=== PATIENT | male | born 1975 | race Caucasian/White ===

== ENCOUNTER 2020-02-27 07:07 | Outpatient (REF) | payer OTHER, SELFPAY | END 2020-02-27 07:08 | disposition home or self-care (01) | LOC: HO.LAB 07:07 | PROVIDERS: PCP Nurse Practitioner Family; Visit Provider Internal Medicine | DX: Z20.828 Contact with and (suspected) exposure to other viral communicable diseases (principal) | CPT/HCPCS: 87635 ==

== ENCOUNTER 2020-04-21 11:20 | Outpatient (REF) | payer OTHER, SELFPAY | END 2020-04-21 11:21 | disposition home or self-care (01) | LOC: HO.LAB 11:20 | PROVIDERS: Visit Provider Internal Medicine | DX: Z20.828 Contact with and (suspected) exposure to other viral communicable diseases (principal) | CPT/HCPCS: C9803; U0003 ==

== ENCOUNTER 2022-02-16 10:27 | Emergency (ER) | payer OTHER, SELFPAY ==
[2022-02-16 10:50] VITALS: BP 140/97; PULSE 76; RESP 18; TEMP 36.7; O2SAT 99; BMI 26.6
--- NOTE | 2022-02-16 12:05 | ED_ITS ---
HPI - Back Pain/Injury General Chief Complaint: Back Pain/Injury Stated Complaint: Sever leg pain R leg for 3 weeks Time Seen by Provider: 02/16/22 11:39 Source: patient Mode of arrival: ambulatory History of Present Illness HPI Narrative: 46-year-old male with a past medical history of sciatica presenting to the ED complaining right-sided low back pain radiating down RLE x3 weeks. 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 States called Orthopedics however cannot get in for 3-4 more weeks. Denies direct injury, trauma, fall, weakness, urinary incontinence/retention, fever MD elicited complaint: back pain and back injury Pertinent past history: prior back pain Onset (ago): week(s) Related Data Previous Rx's Medication Instructions Recorded acetaminophen 500 mg tablet 500 mg PO Q6H PRN fever or pain 02/16/22 (Tylenol Extra Strength) #14 tabs cyclobenzaprine 10 mg tablet 10 mg PO TID PRN muscle spasm #12 02/16/22 tabs ketorolac 10 mg tablet 10 mg PO TID PRN pain 5 days #15 02/16/22 tabs lidocaine 5 % topical patch 1 patch topical DAILY PRN pain #30 02/16/22 (Lidoderm) ea Allergies Allergy/AdvReac Type Severity Reaction Status Date / Time Penicillins [PENICILLINS] Allergy Intermediate HIVES Unverified 01/31/20 14:56 penicillin V Allergy Unknown unsure Unverified 03/01/17 00:00 ?hives, hives Review of Systems Review of Systems: Constitutional: No Fever, No Chills ENT/Mouth: No Ear Pain, No Nasal Congestion, No Sinus Pain, No Hoarseness, No sore throat, No Rhinorrhea, No Swallowing Difficulty Cardiovascular: No Chest Pain, No SOB Respiratory: No Cough, No Sputum, No Wheezing Gastrointestinal: No Nausea, No Vomiting, No Diarrhea, No Constipation, No Abdominal pain Genitourinary: No Dysuria, No Urinary Frequency, No Hematuria, No Urinary Incontinence/retention, No Urgency, No Flank Pain Musculoskeletal: + joint pain, No Myalgias, No Joint Swelling Skin: No Skin Lesions, No rash Neuro: No Weakness, No Numbness, + Paresthesias Yes all other systems are reviewed and are negative Constitutional: Constitutional: Reports as per HPI Neurologic: Denies Sensory deficit (Neuro) [facility] Past Medical History Attestation statement: The following information was validated with the patient. Social History Social History Advance Directives: No Advance Directives Information Provided: No Physical Exam Vital Signs: Vital Signs: Last Vital Signs Temp 98.1 F 02/16/22 10:50 Pulse 76 02/16/22 10:50 Resp 18 02/16/22 10:50 BP 140/97 H 02/16/22 10:50 Pulse Ox 99 02/16/22 10:50 BMI result Body Mass Index 26.6 Const: General: cooperative, healthy appearing and no acute distress Orientation/consciousness: patient oriented x3 Limitations: no limitations HEENT: Head: Yes normal to inspection and Yes atraumatic Ears: hearing grossly normal bilaterally General nose exam: Normal external nose present Face and sinus: Yes normal facial exam Eyes: General: appearance normal, both eyes and all related structures EOM: EOMs intact bilaterally Neck: Other: No midline cervical spinous tenderness Neck: Yes normal visual inspection and Yes no meningeal signs Resp: Effort & Inspection: normal respiratory effort and no respiratory distress Cardio: Rate: regular rate Heart sounds: S1 normal heart sound present and S2 normal heart sound present GI: Inspection: Yes normal to inspection Palpation (GI): Soft to palpation, nontender, no guarding and not rigid : General: Yes no CVA tenderness Back/Spine/Pelvis: Other: No midline thoracic/lumbar spinous tenderness/step-off or deformity. + right- sided lower lumbar MSK tenderness to palpation Back: no CVA tenderness Skin: Rashes: no rashes Wounds: no wounds Neuro: Other: Strength intact throughout. No saddle anesthesia. Sensation intact to light touch. Neurovascular intact distally General: patient oriented x3, gait normal , tone normal, moves all extremities, no meningeal signs and no focal motor deficits Gait exam (Neuro): Normal gait present Motor exam (neuro): 5/5 motor strength present throughout and Abnormal motor strength present Sensory Exam: No Sensory deficit (Neuro) Extrem: General: Yes normal to inspection MDM - Back Pain/Injury MDM Narrative Medical decision making narrative: 46-year-old male with a past medical history of sciatica presenting to the ED complaining right-sided low back pain radiating down RLE x3 weeks. On exam vital signs stable, NAD, nontoxic appearing, no midline spinous tenderness or or red flag symptoms. Pain reproducible to right lower back, no saddle anesthesia. Concern for MSK pain/sciatica vs herniated disc. Low concern for cord compression, cauda equina, or epidural abscess. Low suspicion for renal stone Plan: Pain management, orthopedic follow-up Differential Diagnosis Differential diagnosis: Likely lumbar radiculopathy, sciatica and strain of lumbar region Medical Records Attestation: I reviewed the patient's medical records. Lab Data Attestation: I reviewed the patient's lab results. Discharge Plan Discharge Clinical Impression: Lumbar radiculopathy Patient Disposition: Home, Self-Care Instructions: Lumbar Radiculopathy (ED) Additional Instructions: Your pain is likely musculoskeletal/sciatica Flexeril is a muscle relaxer, take at night as it makes you drowsy, do not drive, drink alcohol, or operate machinery while taking it Toradol as an anti-inflammatory / pain medication, take with food Lidoderm patches are numbing patches, apply to painful area In addition take Tylenol at home If symptoms persist or worsen, pain becomes unbearable, you developed urinary retention or incontinence, or weakness return to the ED Prescriptions: New cyclobenzaprine 10 mg tablet 10 mg PO TID PRN (Reason: muscle spasm) Qty: 12 0RF acetaminophen [Tylenol Extra Strength] 500 mg tablet 500 mg PO Q6H PRN (Reason: fever or pain) Qty: 14 0RF ketorolac 10 mg tablet 10 mg PO TID PRN (Reason: pain) 5 Days Qty: 15 0RF lidocaine [Lidoderm] 5 % adhesive patch,medicated 1 patch topical DAILY MDD remove after 12 hours PRN (Reason: pain) Qty: 30 0RF Rx Instructions: leave on most painful area for up to 12 hrs [place] [facility] [facility] [place] [facility] [place] Group] [facility] [Outside]
[2022-02-16] MEDS: Lidocaine 4 % Patch ADH..PATCH 1 PATCH TRANSDERMA (12:24)
[2022-02-16] MEDS: Ketorolac Tromethamine 30 MG/ML VIAL IM (12:24)
== END 2022-02-16 12:27 | disposition home or self-care (01) ==
PROVIDERS: Emergency Provider Emergency Medicine
DX: M54.16 Radiculopathy, lumbar region (principal); M54.50 Low back pain, unspecified; Z79.899 Other long term (current) drug therapy
CPT/HCPCS: 96372; 99283; 99284; J1885

== ENCOUNTER 2022-03-03 08:46 | Outpatient (REF) | payer OTHER, SELFPAY ==
--- NOTE | ~2022-03-03 | XR_ITS ---
EXAMINATION: XR LUMBOSACRAL SPINE WITH OBLIQUES CLINICAL INFORMATION: Low back pain. COMPARISON: None TECHNIQUE: AP, both oblique, and lateral views of the lumbar spine. Lateral view of the lumbosacral junction. FINDINGS: The vertebral bodies and posterior elements are normal. The disc spaces are preserved and the vertebral alignment is normal. The paraspinal soft tissues are normal. XR/XR lumbar spine 4V min IMPRESSION: No acute osseous abnormality.
== END 2022-03-03 08:47 | disposition home or self-care (01) ==
LOC: HO.XRAY 08:46
PROVIDERS: Absent Provider Physician Assistant Medical; Visit Provider Physical Medicine & Rehabilitation
DX: M54.50 Low back pain, unspecified (principal)
CPT/HCPCS: 72110

== ENCOUNTER 2022-04-29 19:30 | Emergency (ER) | payer OTHER, SELFPAY ==
--- NOTE | ~2022-04-29 | XR_ITS ---
EXAMINATION: XR CHEST, 2 VIEWS CLINICAL INFORMATION: Left chest pain. COMPARISON: 03/19/2010 TECHNIQUE: PA and lateral views of the chest were obtained. FINDINGS: Lungs are clear. No consolidation, pneumothorax, or pleural effusion. Cardiac and mediastinal contours are normal. Pulmonary vasculature is unremarkable. Trachea is midline. Old healed left mid clavicular shaft fracture. No acute osseous findings. XR/XR chest 2V IMPRESSION: Normal chest radiographs.
--- NOTE | ~2022-04-29 | CT_ITS ---
EXAMINATION: CT ANGIOGRAM OF THE CHEST WITH AND WITHOUT CONTRAST (CT PULMONARY ANGIOGRAM FOR PE) CLINICAL INFORMATION: Reason for Exam R/O PE SOB COMPARISON: None TECHNIQUE: Prior to contrast administration, noncontrast localization images were obtained. Subsequently, multidetector volumetric imaging was performed from the thoracic inlet to below the diaphragms following the administration of 75 mL Omnipaque 350 intravenous contrast. No contrast reaction reported Sagittal, coronal, and MIP oblique sagittal reformatted images were obtained on the CT workstation, uploaded to PACS, and reviewed. This CT examination was performed using dose optimization techniques as appropriate, variously including the following: *Automated exposure control *Adjustment of mA and/or kV according to patient size (this includes techniques or standardized protocols for targeted exams where dose is matched to indication/reason for exam; i.e. extremities or head) *Use of iterative reconstruction technique Total exam dose-length product 279 mGy-cm FINDINGS: QUALITY OF STUDY/CONTRAST BOLUS: Satisfactory. PULMONARY ARTERIES: No central or segmental pulmonary emboli. THORACIC AORTA: No aneurysm or dissection. LUNG: Mild dependent atelectasis No focal consolidation, nodules or masses. PLEURA: No pleural effusion or pneumothorax. MEDIASTINUM: Normal heart size. No pericardial effusion. No hilar or mediastinal lymphadenopathy. No evidence of septal bowing or right heart strain. CHEST WALL/AXILLA: No axillary or internal mammary lymphadenopathy. OSSEOUS STRUCTURES: Minimal degenerative disc disease in the lower thoracic spine. No acute osseous abnormalities. UPPER ABDOMEN: Unremarkable. No reflux of contrast into the hepatic veins to suggest elevated right heart pressures. CT/CT angio chest PE protocol IMPRESSION: No acute pulmonary findings. No evidence of pulmonary emboli. VTE: negative
[2022-04-29 19:36] VITALS: BP 133/89; PULSE 92; RESP 18; TEMP 36.7; O2SAT 97; BMI 26.6
--- NOTE | 2022-04-29 19:38 | ECG_ITS ---
Test Reason : CHEST PRESSURE Blood Pressure : / mmHG Vent. Rate : 092 BPM Atrial Rate : 092 BPM P-R Int : 140 ms QRS Dur : 086 ms QT Int : 342 ms P-R-T Axes : 073 049 030 degrees QTc Int : 422 ms Normal sinus rhythm Normal ECG When compared with ECG of 31-DEC-2014 19:45, No significant change was found Referred By: Janny Solorio Electronically Signed By:CHRISTOPHER SOLARES
--- NOTE | 2022-04-29 19:38 | ED_ITS ---
HPI - Chest Pain General Chief Complaint: Chest Pain <DIANE Cowan - Last Filed: 04/29/22 19:41> Stated Complaint: Tightness of back to chest <DIANE Cowan - Last Filed: 04/29/22 19:41> Time Seen by Provider: 04/29/22 20:32 <DIANE Cowan - Last Filed: 04/29/22 19:41> Source: patient <Kip Yap MD - Last Filed: 04/29/22 22:54> Limitations: no limitations <Kip Yap MD - Last Filed: 04/29/22 22:54> History of Present Illness HPI narrative: THIS IS 47 YEARS OLD MALE PRESENTED TO THE EMERGENCY DEPARTMENT WITH CHIEF COMPLAINT OF LEFT-SIDED CHEST PAIN TIMES 6 HOUR. PAIN IS RADIATED TO THE SCAPULA DENIES , NO EXERTIONAL SYMPTOMS DENIES ANY SHORTNESS OF BREATH <Kip Yap MD - Last Filed: 04/29/22 22:54> MD complaint: chest pain <Kip Yap MD - Last Filed: 04/29/22 22:54> Onset (ago): hour(s) (6) <Kip Yap MD - Last Filed: 04/29/22 22:54> Timing of current episode: constant <Kip Yap MD - Last Filed: 04/29/22 22:54> Prior episodes: No <Kip Yap MD - Last Filed: 04/29/22 22:54> Onset: during rest <Kip Yap MD - Last Filed: 04/29/22 22:54> Pain location: left chest <Kip Yap MD - Last Filed: 04/29/22 22:54> Pain radiation: left scapula <Kip Yap MD - Last Filed: 04/29/22 22:54> Quality: aching <Kip Yap MD - Last Filed: 04/29/22 22:54> Risk Factors Coronary artery disease risk factors: none <Kip Yap MD - Last Filed: 04/29/22 22:54> Thoracic aortic dissection risk factors: none <Kip Yap MD - Last Filed: 04/29/22 22:54> Related Data Home Medications: Previous Rx's Medication Instructions Recorded acetaminophen 500 mg tablet 500 mg PO Q6H PRN fever or pain 02/16/22 (Tylenol Extra Strength) #14 tabs cyclobenzaprine 10 mg tablet 10 mg PO TID PRN muscle spasm #12 02/16/22 tabs ketorolac 10 mg tablet 10 mg PO TID PRN pain 5 days #15 02/16/22 tabs lidocaine 5 % topical patch 1 patch topical DAILY PRN pain #30 02/16/22 (Lidoderm) ea <DIANE Cowan - Last Filed: 04/29/22 19:41> Allergies/Adverse Reactions: Allergies Allergy/AdvReac Type Severity Reaction Status Date / Time Penicillins [PENICILLINS] Allergy Intermediate HIVES Unverified 01/31/20 14:56 penicillin V Allergy Unknown unsure Unverified 03/01/17 00:00 ?hives, hives <DIANE Cowan - Last Filed: 04/29/22 19:41> Review of Systems Constitutional: Constitutional: Reports no additional constitutional complaints <Kip Yap MD - Last Filed: 04/29/22 22:54> Cardiovascular: Cardiovascular: Reports chest pain <Kip Yap MD - Last Filed: 04/29/22 22:54> Gastrointestinal: Gastrointestinal: Reports no additional gastrointestinal complaints <Kip Yap MD - Last Filed: 04/29/22 22:54> Endocrine: Endocrine: Reports no additional endocrine complaints <Kip Yap MD - Last Filed: 04/29/22 22:54> [facility] Social History Social History: Social History Advance Directives: No Advance Directives Information Provided: No <DIANE Cowan - Last Filed: 04/29/22 19:41> Physical Exam Vital Signs: Vital Signs: Last Vital Signs Temp 98.1 F 04/29/22 19:36 Pulse 92 04/29/22 19:36 Resp 18 04/29/22 19:36 BP 133/89 04/29/22 19:36 Pulse Ox 97 04/29/22 19:36 O2 Del Method 04/29/22 19:36 BMI result Body Mass Index 26.6 <DIANE Cowan - Last Filed: 04/29/22 19:41> Vital Signs: Last Vital Signs Temp 98.1 F 04/29/22 19:36 Pulse 92 04/29/22 19:36 Resp 18 04/29/22 19:36 BP 133/89 04/29/22 19:36 Pulse Ox 97 04/29/22 19:36 O2 Del Method 04/29/22 19:36 BMI result Body Mass Index 26.6 <Kip Yap MD - Last Filed: 04/29/22 22:54> Const: General: cooperative and healthy appearing <Kip Yap MD - Last Filed: 04/29/22 22:54> Nutritional Appearance: average body habitus <Kip Yap MD - Last Filed: 04/29/22 22:54> Orientation/consciousness: patient oriented x3 <Kip Yap MD - Last Filed: 04/29/22 22:54> Limitations: no limitations <Kip Yap MD - Last Filed: 04/29/22 22:54> HEENT: Head: Yes normal to inspection <Kip Yap MD - Last Filed: 04/29/22 22:54> Ears: hearing grossly normal bilaterally <Kip Yap MD - Last Filed: 04/29/22 22:54> General nose exam: Normal external nose present <Kip Yap MD - Last Filed: 04/29/22 22:54> Face and sinus: Yes normal facial exam <Kip Yap MD - Last Filed: 04/29/22 22:54> Mouth: Normal oral and palatal mucosa present <Kip Yap MD - Last Filed: 04/29/22 22:54> Neck: Neck: Yes normal visual inspection and Yes full ROM <Kip Yap MD - Last Filed: 04/29/22 22:54> Chest: Chest palpation & inspection: normal inspection of the chest <Kip Yap MD - Last Filed: 04/29/22 22:54> Resp: Effort & Inspection: normal respiratory effort <Kip Yap MD - Last Filed: 04/29/22 22:54> Auscultation: clear to auscultation bilaterally <Kip Yap MD - Last Filed: 04/29/22 22:54> Cardio: Jugular venous distension: no JVD <Kip Yap MD - Last Filed: 04/29/22 22:54> Rate: regular rate <Kip Yap MD - Last Filed: 04/29/22 22:54> Rhythm: regular rhythm <Kip Yap MD - Last Filed: 04/29/22 22:54> GI: Inspection: Yes normal to inspection <Kip Yap MD - Last Ray ed: 04/29/22 22:54> Palpation (GI): Soft to palpation, not firm and nontender <Kip Yap MD - Last Filed: 04/29/22 22:54> : General: Yes no CVA tenderness <Kip Yap MD - Last Filed: 04/29/22 22:54> Back/Spine/Pelvis: Back: no CVA tenderness <Kip Yap MD - Last Filed: 04/29/22 22:54> Neuro: General: patient oriented x3 <Kip Yap MD - Last Filed: 04/29/22 22:54> Cranial nerves: Yes CN's II-XII intact bilaterally <Kip Yap MD - Last Filed: 04/29/22 22:54> Course Course Course Narrative: RME 19:40PM - 47yoM c PMHx of Sciatica presenting to the ED c c/o of sudden onset of left chest 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 Although was not performing any heavy lifting or strenuous activity while at work today. He reports it is worse with movement or deep inspiration or coughing. Reports he has never had this in the past. Reports t hat he smokes marijuana denies any other drug usage. He denies any other symptoms complaints or concerns at this time. Plan: Labs, CXR, EKG. Patient will be sent to the waiting room for further nunu luation treatment into the main ER. <DIANE Cowan - Last Filed: 04/29/22 19:41> Reevaluation(s) Reevaluation #1: cta negative,tropiX 2 negative I think pt can be d/c home he is feeling better at this time <Kip Yap MD - Last Filed: 04/29/22 22:54> Time: 22:42 <Kip Yap MD - Last Filed: 04/29/22 22:54> Medications Administered Discontinued Medications Generic Name Dose Route Start Last Admin Trade Name Freq PRN Reason Stop Dose Admin Iohexol 100 ml 04/29/22 21:20 04/29/22 21:21 Iohexol 350 Mg/Ml 100 Ml Infus..Btl IV 04/29/22 21:21 75 ml ONCE ONE Administration <DIANE Cowan - Last Filed: 04/29/22 19:41> Medications Administered Discontinued Medications Generic Name Dose Route Start Last Admin Trade Name Freq PRN Reason Stop Dose Admin Iohexol 100 ml 04/29/22 21:20 04/29/22 21:21 Iohexol 350 Mg/Ml 100 Ml Infus..Btl IV 04/29/22 21:21 75 ml ONCE ONE Administration <Kip Yap MD - Last Filed: 04/29/22 22:54> Medical Decision Making Differential Diagnosis Differential Diagnoses: The differential diagnosis associated with the presentation includes <Kip Yap MD - Last Filed: 04/29/22 22:54> ACS/PE/Dissection <Kip Yap MD - Last Filed: 04/29/22 22:54> Lab Data MDM Lab Attestation statement: I reviewed the patient's lab results. <Kip Yap MD - Last Filed: 04/29/22 22:54> Result Diagrams: : 04/29/22 19:56 04/29/22 19:56 <DIANE Cowan - Last Filed: 04/29/22 19:41> Labs: Lab Results 04/29/22 04/29/22 04/29/22 Range/Units 19:56 19:56 19:56 WBC 16.4 H (4.8-10.8) X10*3/uL RBC 4.51 L (4.60-5.80) X10*6/uL Hgb 14.8 (14.0-18.0) g/dl Hct 42.5 (42.0-52.0) % MCV 94.2 (80.0-98.0) fL MCH 32.8 (27.0-33.0) pg MCHC 34.8 (31.0-36.0) g/dl RDW 11.9 (11.0-16.0) % Plt Count 331 (160-400) X10*3/uL MPV 9.8 (9.4-12.4) fL Immature Gran % (Auto) 0.3 (0.0-0.4) % Neut % (Auto) 59.2 (45-73) % Lymph % (Auto) 24.8 (20-40) % [place] % (Auto) 7.3 (2-11) % Eos % (Auto) 7.7 H (0-4) % Baso % (Auto) 0.7 (0-2) % Lymph # (Auto) 4.1 (1.2-4.9) X10*3/uL [place] # (Auto) 1.2 (0.1-1.2) X10*3/uL Eos # (Auto) 1.3 H (0.0-0.4) X10*3/uL Baso # (Auto) 0.1 (0.0-0.2) X10*3/uL Abs Immat Gran (auto) 0.05 H (0.00-0.03) X10*3/uL Absolute Neuts (auto) 9.7 H (2.0-8.3) x10*3/uL Absolute Nucleated RBC 0.000 (0.0-0.012) X10*3/uL Nucleated RBC % (auto) 0.0 (0.0-0.2) /100WBC PT 10.8 (10.0-13.1) SEC INR 0.9 (0.9-1.1) Sodium 138 (135-145) mmol/L Potassium 4.3 (3.3-5.1) mmol/L Chloride 103 (96-108) mmol/L Carbon Dioxide 26 (22-29) mmol/L Anion Gap 13 (12-20) BUN 20 H (9-16) mg/dL Creatinine 0.98 (0.5-1.4) mg/dL Estim Creat Clear Calc 90.1 Estimated GFR > 60 Random Glucose 97 (60-115) mg/dL Calcium 9.0 (8.4-10.2) mg/dL Magnesium 2.4 (1.6-2.6) mg/dL Total Bilirubin 0.4 (0.0-1.0) mg/dL AST 34 (5-37) U/L ALT 46 H (0-40) U/L Alkaline Phosphatase 103 (39-117) U/L Troponin I High Sens (<3.5-35.0) ng/L Total Protein 6.9 (6.5-8.0) g/dL Albumin 4.2 (3.5-5.0) g/dL Influenza Type A (PCR) (Negative) Influenza Type B (PCR) (Negative) RSV RNA Qual (PCR) (Negative) SARS-CoV-2 RNA (RT-PCR) (Negative) 04/29/22 04/29/22 04/29/22 Range/Units 19:56 19:56 21:07 WBC (4.8-10.8) X10*3/uL RBC (4.60-5.80) X10*6/uL Hgb (14.0-18.0) g/dl Hct (42.0-52.0) % MCV (80.0-98.0) fL MCH (27.0-33.0) pg MCHC (31.0-36.0) g/dl RDW (11.0-16.0) % Plt Count (160-400) X10*3/uL MPV (9.4-12.4) fL Immature Gran % (Auto) (0.0-0.4) % Neut % (Auto) (45-73) % Lymph % (Auto) (20-40) % [place] % (Auto) (2-11) % Eos % (Auto) (0-4) % Baso % (Auto) (0-2) % Lymph # (Auto) (1.2-4.9) X10*3/uL [place] # (Auto) (0.1-1.2) X10*3/uL Eos # (Auto) (0.0-0.4) X10*3/uL Baso # (Auto) (0.0-0.2) X10*3/uL Abs Immat Gran (auto) (0.00-0.03) X10*3/uL Absolute Neuts (auto) (2.0-8.3) x10*3/uL Absolute Nucleated RBC (0.0-0.012) X10*3/uL Nucleated RBC % (auto) (0.0-0.2) /100WBC PT (10.0-13.1) SEC INR (0.9-1.1) Sodium (135-145) mmol/L Potassium (3.3-5.1) mmol/L Chloride (96-108) mmol/L Carbon Dioxide (22-29) mmol/L Anion Gap (12-20) BUN (9-16) mg/dL Creatinine (0.5-1.4) mg/dL Estim Creat Clear Calc Estimated GFR Random Glucose (60-115) mg/dL Calcium (8.4-10.2) mg/dL Magnesium (1.6-2.6) mg/dL Total Bilirubin (0.0-1.0) mg/dL AST (5-37) U/L ALT (0-40) U/L Alkaline Phosphatase (39-117) U/L Troponin I High Sens < 3.5 < 3.5 (<3.5-35.0) ng/L Total Protein (6.5-8.0) g/dL Albumin (3.5-5.0) g/dL Influenza Type A (PCR) NEGATIVE (Negative) Influenza Type B (PCR) NEGATIVE (Negative) RSV RNA Qual (PCR) NEGATIVE (Negative) SARS-CoV-2 RNA (RT-PCR) NEGATIVE (Negative) <DIANE Cowan - Last Filed: 04/29/22 19:41> Lab Results 04/29/22 04/29/22 04/29/22 Range/Units 19:56 19:56 19:56 WBC 16.4 H (4.8-10.8) X10*3/uL RBC 4.51 L (4.60-5.80) X10*6/uL Hgb 14.8 (14.0-18.0) g/dl Hct 42.5 (42.0-52.0) % MCV 94.2 (80.0-98.0) fL MCH 32.8 (27.0-33.0) pg MCHC 34.8 (31.0-36.0) g/dl RDW 11.9 (11.0-16.0) % Plt Count 331 (160-400) X10*3/uL MPV 9.8 (9.4-12.4) fL Immature Gran % (Auto) 0.3 (0.0-0.4) % Neut % (Auto) 59.2 (45-73) % Lymph % (Auto) 24.8 (20-40) % [place] % (Auto) 7.3 (2-11) % Eos % (Auto) 7.7 H (0-4) % Baso % (Auto) 0.7 (0-2) % Lymph # (Auto) 4.1 (1.2-4.9) X10*3/uL [place] # (Auto) 1.2 (0.1-1.2) X10*3/uL Eos # (Auto) 1.3 H (0.0-0.4) X10*3/uL Baso # (Auto) 0.1 (0.0-0.2) X10*3/uL Abs Immat Gran (auto) 0.05 H (0.00-0.03) X10*3/uL Absolute Neuts (auto) 9.7 H (2.0-8.3) x10*3/uL Absolute Nucleated RBC 0.000 (0.0-0.012) X10*3/uL Nucleated RBC % (auto) 0.0 (0.0-0.2) /100WBC PT 10.8 (10.0-13.1) SEC INR 0.9 (0.9-1.1) Sodium 138 (135-145) mmol/L Potassium 4.3 (3.3-5.1) mmol/L Chloride 103 (96-108) mmol/L Carbon Dioxide 26 (22-29) mmol/L Anion Gap 13 (12-20) BUN 20 H (9-16) mg/dL Creatinine 0.98 (0.5-1.4) mg/dL Estim Creat Clear Calc 90.1 Estimated GFR > 60 Random Glucose 97 (60-115) mg/dL Calcium 9.0 (8.4-10.2) mg/dL Magnesium 2.4 (1.6-2.6) mg/dL Total Bilirubin 0.4 (0.0-1.0) mg/dL AST 34 (5-37) U/L ALT 46 H (0-40) U/L Alkaline Phosphatase 103 (39-117) U/L Troponin I High Sens (<3.5-35.0) ng/L Total Protein 6.9 (6.5-8.0) g/dL Albumin 4.2 (3.5-5.0) g/dL Influenza Type A (PCR) (Negative) Influenza Type B (PCR) (Negative) RSV RNA Qual (PCR) (Negative) SARS-CoV-2 RNA (RT-PCR) (Negative) 04/29/22 04/29/22 04/29/22 Range/Units 19:56 19:56 21:07 WBC (4.8-10.8) X10*3/uL RBC (4.60-5.80) X10*6/uL Hgb (14.0-18.0) g/dl Hct (42.0-52.0) % MCV (80.0-98.0) fL MCH (27.0-33.0) pg MCHC (31.0-36.0) g/dl RDW (11.0-16.0) % Plt Count (160-400) X10*3/uL MPV (9.4-12.4) fL Immature Gran % (Auto) (0.0-0.4) % Neut % (Auto) (45-73) % Lymph % (Auto) (20-40) % [place] % (Auto) (2-11) % Eos % (Auto) (0-4) % Baso % (Auto) (0-2) % Lymph # (Auto) (1.2-4.9) X10*3/uL [place] # (Auto) (0.1-1.2) X10*3/uL Eos # (Auto) (0.0-0.4) X10*3/uL Baso # (Auto) (0.0-0.2) X10*3/uL Abs Immat Gran (auto) (0.00-0.03) X10*3/uL Absolute Neuts (auto) (2.0-8.3) x10*3/uL Absolute Nucleated RBC (0.0-0.012) X10*3/uL Nucleated RBC % (auto) (0.0-0.2) /100WBC PT (10.0-13.1) SEC INR (0.9-1.1) Sodium (135-145) mmol/L Potassium (3.3-5.1) mmol/L Chloride (96-108) mmol/L Carbon Dioxide (22-29) mmol/L Anion Gap (12-20) BUN (9-16) mg/dL Creatinine (0.5-1.4) mg/dL Estim Creat Clear Calc Estimated GFR Random Glucose (60-115) mg/dL Calcium (8.4-10.2) mg/dL Magnesium (1.6-2.6) mg/dL Total Bilirubin (0.0-1.0) mg/dL AST (5-37) U/L ALT (0-40) U/L Alkaline Phosphatase (39-117) U/L Troponin I High Sens < 3.5 < 3.5 (<3.5-35.0) ng/L Total Protein (6.5-8.0) g/dL Albumin (3.5-5.0) g/dL Influenza Type A (PCR) NEGATIVE (Negative) Influenza Type B (PCR) NEGATIVE (Negative) RSV RNA Qual (PCR) NEGATIVE (Negative) SARS-CoV-2 RNA (RT-PCR) NEGATIVE (Negative) <Kip Yap MD - Last Filed: 04/29/22 22:54> Independent Interpretation I performed an independent interpretation of an: EKG and CT Scan <Kip Yap MD - Last Filed: 04/29/22 22:54> Interpretation: AN EKG WAS REVIEWED A NORMAL SINUS RHYTHM A NO ST-T CHANGES <Kip Yap MD - Last Filed: 04/29/22 22:54> Radiology Impression Discussion of test interpretation with radiology: I have reviewed the radiologist's reading. <Kip Yap MD - Last Filed: 04/29/22 22:54> Radiologist Impression: ules or masses. PLEURA: No pleural effusion or pneumothorax. MEDIASTINUM: Normal heart size.? No pericardial effusion.? No hilar or mediastinal lymphadenopathy.? No evidence of septal bowing or right heart strain. CHEST WALL/AXILLA: No axillary or internal mammary lymphadenopathy. OSSEOUS STRUCTURES: Minimal degenerative disc disease in the lower thoracic spine. No acute osseous abnormalities.? UPPER ABDOMEN: Unremarkable.? No reflux of contrast into the hepatic veins to suggest elevated right heart pressures. CT/CT angio chest PE protocol IMPRESSION: No acute pulmonary findings. No evidence of pulmonary emboli. ? VTE: negative Dictated By: n Signed By: <Electronically signed by n in OV> 04/29/222202 <Kip Yap MD - Last Filed: 04/29/22 22:54> Discharge Plan Discharge Clinical Impression: Chest pain <DIANE Cowan - Last Filed: 04/29/22 19:41> Patient Disposition: Home, Self-Care <DIANE Cowan - Last Filed: 04/29/22 19:41> Additional Instructions: Follow-up with your primary care physician return if you worse any concern <DIANE Cowan - Last Filed: 04/29/22 19:41> Prescriptions: No Action cyclobenzaprine 10 mg tablet 10 mg PO TID PRN (Reason: muscle spasm) Qty: 12 0RF acetaminophen [Tylenol Extra Strength] 500 mg tablet 500 mg PO Q6H PRN (Reason: fever or pain) Qty: 14 0RF ketorolac 10 mg tablet 10 mg PO TID PRN (Reason: pain) 5 Days Qty: 15 0RF lidocaine [Lidoderm] 5 % adhesive patch,medicated 1 patch topical DAILY MDD remove after 12 hours PRN (Reason: pain) Qty: 30 0RF Rx Instructions: leave on most painful area for up to 12 hrs <DIANE Cowan - Last Filed: 04/29/22 19:41> Referrals: Neelima Jackson MD [Primary Care Provider] - 2 days <DIANE Cowan - Last Filed: 04/29/22 19:41>
[2022-04-29 20:03] LABS: MANUAL DIFF FLAG NO
[2022-04-29 20:05] LABS: Basophils Absolute Auto 0.1 X10*3/uL (0.0-0.2); Basophils Percent Auto 0.7 % (0-2); Eosinophils Absolute Auto 1.3 X10*3/uL (0.0-0.4); Eosinophils Percent Auto 7.7 % (0-4); Hematocrit 42.5 % (42.0-52.0); Hemoglobin 14.8 g/dl (14.0-18.0); Imm Gran Abs Auto 0.05 X10*3/uL (0.00-0.03); Imm Gran Pct Auto 0.3 % (0.0-0.4); Lymphocytes Absolute Auto 4.1 X10*3/uL (1.2-4.9); Lymphocytes Percent Auto 24.8 % (20-40); Mean Corpuscular HGB Conc 34.8 g/dl (31.0-36.0); Mean Corpuscular Hemoglobin 32.8 pg (27.0-33.0); Mean Corpuscular Volume 94.2 fL (80.0-98.0); Mean Platelet Volume 9.8 fL (9.4-12.4); Monocytes Absolute Auto 1.2 X10*3/uL (0.1-1.2); Monocytes Percent Auto 7.3 % (2-11); Neutrophils Absolute Auto 9.7 x10*3/uL (2.0-8.3); Neutrophils Percent Auto 59.2 % (45-73); Platelet Count 331 X10*3/uL (160-400); Red Blood Count 4.51 X10*6/uL (4.60-5.80); Red Cell Distribution Width 11.9 % (11.0-16.0); White Blood Count 16.4 X10*3/uL (4.8-10.8)
[2022-04-29 20:10] LABS: INTERNATIONAL NORM RATIO 0.9 (0.9-1.1); Prothrombin Time 10.8 SEC (10.0-13.1)
[2022-04-29 20:24] LABS: Alanine Aminotransferase 46 U/L (0-40); Albumin Level 4.2 g/dL (3.5-5.0); Alkaline Phosphatase 103 U/L (39-117); Anion Gap 13 (12-20); Aspartate Amino Transferase 34 U/L (5-37); Bilirubin Total 0.4 mg/dL (0.0-1.0); Blood Urea Nitrogen 20 mg/dL (9-16); Carbon Dioxide 26 mmol/L (22-29); Chloride 103 mmol/L (96-108); Creatinine Clr Calc Pharmacy 90.1; Estimated Glomerular Filt Rate > 60; Glucose Random 97 mg/dL (60-115); Magnesium 2.4 mg/dL (1.6-2.6); Potassium 4.3 mmol/L (3.3-5.1); Sodium 138 mmol/L (135-145); Total Protein 6.9 g/dL (6.5-8.0)
[2022-04-29 20:30] LABS: Troponin-I High Sensitivity < 3.5 ng/L (<3.5-35.0)
[2022-04-29 20:42] LABS: Influenza A PCR NEGATIVE (Negative); Influenza B PCR NEGATIVE (Negative); Resp Syncy Virus RNA Qual PCR NEGATIVE (Negative); SARS COV2 PCR INHOUSE NEGATIVE (Negative)
[2022-04-29] MEDS: iohexoL 350 MG/ML 100 ML INFUS..BTL IV (21:21)
[2022-04-29 21:37] LABS: Troponin-I High Sensitivity < 3.5 ng/L (<3.5-35.0)
--- NOTE | 2022-04-29 22:58 | PC.NURSE ---
Pt. alert and oriented, respirations even and unlabored.
== END 2022-04-29 23:00 | disposition home or self-care (01) ==
PROVIDERS: Physician Assistant Medical; Emergency Provider Emergency Medicine; PCP Internal Medicine
DX: R07.89 Other chest pain (principal); Z20.822 Contact with and (suspected) exposure to COVID-19; Z79.899 Other long term (current) drug therapy
CPT/HCPCS: 0241U; 36415; 71046; 71275; 80053; 83735; 84484; 85025; 85610; 93005; 99283; Q9967

== ENCOUNTER 2023-11-10 08:52 | Emergency (ER) | payer MEDICAID, SELFPAY ==
[2023-11-10 08:54] VITALS: BP 135/88; PULSE 91; RESP 17; TEMP 37; O2SAT 98; BMI 26.6
--- NOTE | 2023-11-10 10:34 | ED_ITS ---
HPI - General Adult General Chief complaint: General Medical Stated complaint: rash on back Time Seen by Provider: 11/10/23 10:34 Source: patient Mode of arrival: ambulatory Limitations: no limitations History of Present Illness ED Provider: scooter [facility] narrative: Patient is a 48-year-old male presenting to the emergency department with complaint of pruritic rash to upper back, neck and head for the past week. States that symptoms began after camping. Denies any pain. Has not taken any yxbd-qnb-gwsetpj medications at home for his symptoms. Denies any new medications, detergents, foods, etc.. Denies any swelling of lips or tongue. Denies any difficulty breathing. Denies fevers. MD complaint: rash Onset (ago): week(s) Location: head, neck and back Pain Consistency: constant Associated symptoms: denies other symptoms Treatments prior to arrival: none Related Data Home Medications ?Medication ?Instructions ?Recorded ?Confirmed buprenorphine 8 mg-naloxone 2 mg 10 mg sublingual DAILY 06/01/23 06/01/23 sublingual film (Suboxone) doxylamine succinate 25 mg tablet 25 mg PO BEDTIME 06/01/23 06/01/23 (Unisom (doxylamine)) Previous Rx's ?Medication ?Instructions ?Recorded cetirizine 10 mg tablet 10 mg PO DAILY #14 tabs 11/10/23 prednisone 20 mg tablet See Rx Instructions .Route 11/10/23 .COMPLEX #18 tabs Allergies Allergy/AdvReac Type Severity Reaction Status Date / Time Penicillins [PENICILLINS] Allergy Intermediate HIVES Verified 11/10/23 08:55 Review of Systems Review of Systems: As per HPI. Yes all other systems are reviewed and are negative Constitutional: Constitutional: Reports as per HPI [facility] Past Medical History Medical History (Updated 11/10/23 @ 10:49 by Wanda Bonilla NP) Opioid use disorder Insomnia Surgical History (Updated 06/01/23 @ 13:33 by Roberta Haywood RN) History of surgery Hx of tonsillectomy Physical Exam ED Vital Signs: Vital Signs - 24 hr 11/10/23 08:54 Temperature 98.6 F Pulse Rate 91 Respiratory Rate 17 Blood Pressure 135/88 Pulse Oximetry 98 Oxygen Delivery Method Room Air BMI result Body Mass Index 26.6 Vital signs have been reviewed and appear to be correct. Blood pressure normal. Heart rate normal. Respiratory rate normal. Temperature normal. Oxygen saturation normal. Const General: cooperative, healthy appearing and no acute distress Orientation/consciousness: oriented to person, oriented to place, oriented to time and patient oriented x3 Limitations: no limitations HENMT Head: Yes normocephalic and Yes atraumatic Ears: external ears normal General nose exam: Normal external nose present Face and sinus: Yes face symmetric Mouth: Normal oral and palatal mucosa present, lip normal, tongue normal, oropharynx normal and moist mucous membranes Throat: Yes uvula midline Eyes Pupils: Equal, round and reactive pupils present Neck Neck: Yes normal visual inspection and Yes supple Resp Effort & Inspection: normal respiratory effort and able to speak in complete sentences Auscultation: clear to auscultation bilaterally Cardio Rate: regular rate Rhythm: regular rhythm Heart sounds: S1 normal heart sound present and S2 normal heart sound present GI Palpation (GI): Soft to palpation and nontender Auscultation: normoactive bowel sounds General: Yes no CVA tenderness Back/Spine/Pelvis Back: no CVA tenderness Skin General skin exam: elasticity normal and turgor normal Rashes: rashes noted (erythematous blanchable maculopapular rash to upper back, neck, scalp, fore) maculopapular rash bilateral back Neuro General: oriented to person, oriented to place, oriented to time, patient oriented x3, moves all extremities, no focal motor deficits and CN's II-XI intact bilaterally Cranial nerves: Yes Equal, round and reactive pupils present Cognition (Neuro): normal cognition Extrem General: Yes full ROM, Yes no pedal edema and Yes no calf tenderness Psych Mental Status: mental status grossly normal Affect: normal affect Thought process: Normal thought process present Medical Decision Making Medical Decision Making MDM Narrative: Patient is a 48-year-old male presenting to the emergency department with complaint of pruritic rash to upper back, neck and head for the past week. On exam patient is awake, A+Ox3, VS WNL, afebrile, normal neurological exam without focal deficits, physical exam findings as above. Given reported symptoms and physical exam findings, initial differential includes contact dermatitis, atopic dermatitis. Not consistent with zoster, bedbugs, scabies, erythema migrans. No findings concerning for TEN/SJS, DRESS, TTP/DIC, necrotizing fasciitis, meningococcemia, SSSS, TSS, anaphylaxis. Advised patient to begin taking a daily second generation antihistamine, will start on prednisone taper. Advised to follow up with PCP is symptoms do not improve. Return precautions discussed. Patient verbalized understanding of and agreement with plan. Differential Diagnosis Differential Diagnoses: The differential diagnosis associated with the presentation includes As per [facility] External Record Review External record reviewed: Inpatient record, Office record and Outpatient record Prescription Management I considered prescription management with: Other Discharge Plan Discharge Clinical Impression: Rash and nonspecific skin eruption Patient Disposition: Home, Self-Care Instructions: Contact Dermatitis (DC), Acute Rash (ED) Additional Instructions: You were evaluated in the emergency department today for a rash. We recommend that you begin taking an mtmg-jke-ehfurdn antihistamine such as cetirizine (Zyrtec) or loratadine (Claritin). You are also being prescribed a tapered dose of prednisone to decrease inflammation. Please follow-up with your primary care provider this week. Return to the emergency department if you develop worsening rash, swelling to her lips or tongue, difficulty swallowing or breathing or any other concerning symptoms. Prescriptions: New cetirizine 10 mg tablet 10 mg PO DAILY Qty: 14 0RF prednisone 20 mg tablet See Rx Instructions .ROUTE .COMPLEX Qty: 18 0RF Rx Instructions: 60mg (3tabs) daily for 3 days, then 40mg (2 tabs) daily for 3 days, then 20mg (1 tab) daily for 3 days No Action buprenorphine-naloxone [Suboxone] 8-2 mg film 10 mg sublingual DAILY Unisom (doxylamine) 25 mg Tablet 25 mg PO BEDTIME Referrals: [facility] [Provider Group] [facility] [Provider Group] [facility] [Provider Group] Print Language: Georgian
[2023-11-10 11:05] VITALS: BP 130/88; PULSE 72; RESP 18; TEMP 36.8; O2SAT 98
== END 2023-11-10 11:06 | disposition home or self-care (01) ==
PROVIDERS: Emergency Provider Emergency Medicine; PCP Internal Medicine
DX: R21 Rash and other nonspecific skin eruption (principal)
CPT/HCPCS: 99282; 99283

== ENCOUNTER 2023-11-23 15:18 | Outpatient (REF) | payer OTHER, SELFPAY ==
[2023-11-23 15:48] LABS: Basophils Absolute Auto 0.1 X10*3/uL (0.0-0.2); Basophils Percent Auto 0.5 % (0-2); Eosinophils Absolute Auto 1.6 X10*3/uL (0.0-0.4); Eosinophils Percent Auto 8.5 % (0-4); Hemoglobin 16.6 g/dl (14.0-18.0); Imm Gran Abs Auto 0.09 X10*3/uL (0.00-0.03); Imm Gran Pct Auto 0.5 % (0.0-0.4); Lymphocytes Absolute Auto 5.9 X10*3/uL (1.2-4.9); Lymphocytes Percent Auto 32.3 % (20-40); MANUAL DIFF FLAG SCAN; Mean Corpuscular HGB Conc 34.6 g/dl (31.0-36.0); Mean Corpuscular Hemoglobin 32.9 pg (27.0-33.0); Mean Corpuscular Volume 95.2 fL (80.0-98.0); Mean Platelet Volume 9.8 fL (9.4-12.4); Monocytes Absolute Auto 1.3 X10*3/uL (0.1-1.2); Monocytes Percent Auto 7.2 % (2-11); Neutrophils Absolute Auto 9.4 x10*3/uL (2.0-8.3); Platelet Count 302 X10*3/uL (160-400); Red Blood Count 5.04 X10*6/uL (4.60-5.80); Red Cell Distribution Width 12.3 % (11.0-16.0); SCAN SMEAR FLAG 1
[2023-11-23 16:21] LABS: Alanine Aminotransferase 20 U/L (0-40); Albumin Level 4.1 g/dL (3.5-5.0); Alkaline Phosphatase 105 U/L (39-117); Anion Gap 14 (12-20); Aspartate Amino Transferase 19 U/L (5-37); Bilirubin Total 0.3 mg/dL (0.0-1.0); Blood Urea Nitrogen 13 mg/dL (9-16); Calcium 9.1 mg/dL (8.4-10.2); Carbon Dioxide 26 mmol/L (22-29); Chloride 103 mmol/L (96-108); Cholesterol 234 mg/dL (<200); Estimated Glomerular Filt Rate > 60; Glucose Random 99 mg/dL (60-115); HDL Cholesterol 39 mg/dL (>40); Potassium 4.5 mmol/L (3.3-5.1); Sodium 138 mmol/L (135-145); Total Protein 7.4 g/dL (6.5-8.0); Triglycerides 445 mg/dL (<150)
[2023-11-23 17:18] LABS: White Blood Count 18.4 X10*3/uL (4.8-10.8)
[2023-11-23 17:19] LABS: SLIDE REVIEW VERIFIED
[2023-11-25 15:14] LABS: HCV Log PCR <1.18 NOT DETECTED Log IU/mL (NOT DETECTED); HepC Viral Load <15 NOT DETECTED IU/mL (NOT DETECTED)
== END 2023-11-23 15:19 | disposition home or self-care (01) ==
LOC: HO.LAB 15:18
PROVIDERS: PCP Internal Medicine; Visit Provider Internal Medicine
DX: Z00.01 Encounter for general adult medical examination with abnormal findings (principal); B18.2 Chronic viral hepatitis C; L50.8 Other urticaria; Z72.0 Tobacco use
CPT/HCPCS: 36415; 80053; 80061; 85025; 87522

== ENCOUNTER 2024-09-12 12:00 | Emergency (ER) | payer OTHER, SELFPAY ==
--- NOTE | ~2024-09-12 | US_ITS ---
EXAMINATION: US SCROTUM CLINICAL INFORMATION: Left testicular pain. COMPARISON: None available. TECHNIQUE: A sonogram of the scrotum was performed assessing garcia-scale appearance and color Doppler flow. Spectral Doppler analysis of the arterial and venous flow were performed in the testes bilaterally. FINDINGS: RIGHT: Right testicle measures 4.2 x 2.1 x 2.9 cm, volume 13.3 mL. No focal testicular parenchymal lesions are visualized. Spectral Doppler analysis of the arterial and venous flow is normal in the right testis. Right epididymal head is normal in size. There is a 2 mm epididymal head cyst. There is a normal epididymal head appendage. No right hydrocele. There is a right varicocele present. Right epididymal Doppler flow is normal. LEFT: Left testicle measures 3.8 x 2.0 x 2.7 cm, volume 11.0 mL. No focal testicular parenchymal lesions are visualized. Spectral Doppler analysis of the arterial and venous flow is normal in the left testis. Left epididymal head is normal in size. There is a normal epididymal head appendage. No left hydrocele. There is a left varicocele. Left epididymal Doppler flow is normal. US/US scrotum doppler IMPRESSION: 1. Normal testicles bilaterally. No evidence of torsion or significant hyperemia of either testicle. No masses. 2. Normal epididymides bilaterally. 3. Bilateral varicoceles are present. Electronically signed by: Esa Patel MD 09/12/2024 02:10 PM EDT
--- NOTE | ~2024-09-12 | US_ITS ---
EXAMINATION: US SCROTUM CLINICAL INFORMATION: Left testicular pain. COMPARISON: None available. TECHNIQUE: A sonogram of the scrotum was performed assessing garcia-scale appearance and color Doppler flow. Spectral Doppler analysis of the arterial and venous flow were performed in the testes bilaterally. FINDINGS: RIGHT: Right testicle measures 4.2 x 2.1 x 2.9 cm, volume 13.3 mL. No focal testicular parenchymal lesions are visualized. Spectral Doppler analysis of the arterial and venous flow is normal in the right testis. Right epididymal head is normal in size. There is a 2 mm epididymal head cyst. There is a normal epididymal head appendage. No right hydrocele. There is a right varicocele present. Right epididymal Doppler flow is normal. LEFT: Left testicle measures 3.8 x 2.0 x 2.7 cm, volume 11.0 mL. No focal testicular parenchymal lesions are visualized. Spectral Doppler analysis of the arterial and venous flow is normal in the left testis. Left epididymal head is normal in size. There is a normal epididymal head appendage. No left hydrocele. There is a left varicocele. Left epididymal Doppler flow is normal. US/US scrotum IMPRESSION: 1. Normal testicles bilaterally. No evidence of torsion or significant hyperemia of either testicle. No masses. 2. Normal epididymides bilaterally. 3. Bilateral varicoceles are present. Electronically signed by: Esa Patel MD 09/12/2024 02:10 PM EDT
[2024-09-12 12:02] VITALS: BP 125/88; PULSE 92; RESP 19; TEMP 36.6; O2SAT 98; BMI 26.6
--- NOTE | 2024-09-12 12:04 | ED_ITS ---
HPI - Male Genitourinary General Chief complaint: Urogenital-Male Stated complaint: Testicular pain Time Seen by Provider: 09/12/24 12:10 Source: patient Mode of arrival: ambulatory Limitations: no limitations History of Present Illness ED Provider: Mirella Clarke PA-C HPI Narrative: Patient is a 49 year old assigned male at with no reported medical history presenting to the emergency department today with left sided testicular pain. Patient states that 2 days ago he had right sided testicular pain that resolved but now he is having left sided testicular pain. Patient states that he is sexually active with the same partner for the last 3 years. Patient denies any dizziness, lightheadedness, abdominal pain, nausea, vomiting, fever, chills, blurry vision, double vision, loss of vision, chest pain, difficulty breathing, shortness of breath, back pain, night sweats, pain with urination, increased urinary frequency, increased urinary urgency, blood in his urine or stool, syncope or a near syncopal episode, recent trauma or falls, bowel incontinence, bladder incontinence, or any other complaints at this time. Related Data Home Medications ?Medication ?Instructions ?Recorded ?Confirmed buprenorphine 8 mg-naloxone 2 mg 10 mg sublingual DAILY 06/01/23 06/01/23 sublingual film (Suboxone) doxylamine succinate 25 mg tablet 25 mg PO BEDTIME 06/01/23 06/01/23 (Unisom (doxylamine)) Previous Rx's ?Medication ?Instructions ?Recorded cetirizine 10 mg tablet 10 mg PO DAILY #14 tabs 11/10/23 prednisone 20 mg tablet See Rx Instructions .Route 11/10/23 .COMPLEX #18 tabs doxycycline hyclate 100 mg tablet 100 mg PO BID 7 days #14 tabs 09/12/24 Allergies Allergy/AdvReac Type Severity Reaction Status Date / Time Penicillins [PENICILLINS] Allergy Intermediate HIVES Verified 09/12/24 12:05 Review of Systems 2 Constitutional: Constitutional: Reports no additional constitutional complaints, Denies chills, Denies fever(s) and Denies night sweats Eyes: Eyes: Reports no additional eye complaints, Denies blurry vision, Denies change in vision, Denies diplopia, Denies eye discharge, Denies loss of vision and Denies eye pain ENT: Denies dizziness Cardiovascular: Cardiovascular: Reports no additional cardiovascular complaints, Denies chest pain, Denies lightheadedness, Denies Loss of Consciousness and Denies dyspnea Respiratory: Respiratory: Reports no additional respiratory complaints and Denies dyspnea Gastrointestinal: Gastrointestinal: Reports no additional gastrointestinal complaints, Denies abdominal pain, Denies melena, Denies hematochezia, Denies change in bowel habits and Denies change in stool character Genitourinary: Genitourinary: Reports no additional male genitourinary complaints, Denies hematuria, Denies oliguria, Denies difficulty urinating, Denies dysuria, Reports testicular pain, Denies urinary frequency, Denies urinary hesitancy, Denies urinary incontinence and Denies urinary urgency Musculoskeletal: Musculoskeletal: Reports no additional musculoskeletal complaints, Denies numbness and Denies tingling Neurologic: Denies dizziness, Denies loss of vision, Denies numbness and Denies tingling Psychiatric: Psychiatric: Reports no additional psychiatric complaints Endocrine: Endocrine: Reports no additional endocrine complaints Hematologic/Lymphatic: Hematologic/Lymphatic: Reports no additional hematologic/lymphatic complaints Allergic/Immunologic: Allergic/Immunologic: Reports no additional allergic/immunologic complaints PMFSH Past Medical History Attestation statement: The following information was validated with the patient. Source: old records reviewed and nursing notes reviewed Medical History Opioid use disorder Insomnia Surgical History History of surgery Hx of tonsillectomy Social History Social History Advance Directives: No Advance Directives Information Provided: Yes Do you have a plan to hurt others: No Plan Physical Exam 2 Vital Signs: Vital Signs: Last Vital Signs Temp 98 F 09/12/24 14:31 Pulse 92 09/12/24 14:31 Resp 19 09/12/24 14:31 BP 125/88 09/12/24 14:31 Pulse Ox 98 09/12/24 14:31 O2 Del Method Room Air 09/12/24 14:31 BMI result Body Mass Index 26.6 Const: General: cooperative, no acute distress, alert and awake Nutritional Appearance: well nourished Orientation/consciousness: patient oriented x3 HEENT: Head: Yes normal to inspection and Yes atraumatic Ears: hearing grossly normal bilaterally and external ears normal General nose exam: Normal external nose present, no nasal discharge noted and no epistaxis Face and sinus: Yes normal facial exam, No abrasion and No laceration Mouth: Normal oral and palatal mucosa present, no drooling and no muffled voice Eyes: General: appearance normal, both eyes and all related structures P eriorbital: periorbital findings normal Eyelids: Yes eyelids normal C onjunctivae: conjunctivae normal Pupils: Equal, round and reactive pupils present EOM: EOMs intact bilaterally Neck: Neck: Yes normal visual inspection, Yes full ROM and Yes no lymphadenopathy Resp: Effort & Inspection: normal respiratory effort and able to speak in complete sentences : Testes: Testes normal and testicular lie normal Neuro: General: patient oriented x3, moves all extremities and CN's II-XI intact bilaterally Cranial nerves: Yes Equal, round and reactive pupils present Cognition (Neuro): normal cognition Extrem: General: Yes normal to inspection, Yes full ROM and Yes capillary refill normal Psych: Appearance: grossly normal Mental Status: mental status grossly normal Affect: normal affect Attitude: cooperative Thought process: N ormal thought process present Thought content: Normal thought content present Insight: Good insight present (Psych) Course Course Course Narrative: This is a Rapid Medical Examination (RME) performed by Luis Donahue PA-C in triage. Full HPI, ROS, assessment and treatment plan per primary provider in the Main ED. 09/12/24 1205 DIANE Martínez Hx: 49 yo male here for eval of left testicular pain x yesterday. reports pain initially began in his right testicle 2 days ago. Resolved. Then began having left testicular pain yesterday which continued into today. Reports straining to urinate. No dysuria or hematuria. admits to heavy lifting as he works as a [employer]. denies any obvious swelling/redness to testicles. PE/vitals: Well-appearing, area not examined in triage due to privacy Plan: labs, UA, ct/ng, ultrasound, further eval needed in main ED Medications Administered Discontinued Medications Generic Name Dose Route Start Last Admin Trade Name Freq PRN Reason Stop Dose Admin Ceftriaxone Sodium 500 mg/ 0 mg 09/12/24 14:14 09/12/24 14:24 Lidocaine HCl 1 ml IM 09/12/24 14:15 1 kit ONCE ONE Administration Medical Decision Making Medical Decision Making MDM Narrative: Patient is a 49 year old assigned male at with no reported medical history presenting to the emergency department today with left sided testicular pain. Patient's physical exam was unremarkable. Patient's blood work showed a mildly elevated WBC count of 12.8 but were otherwise unremarkable. Patient's CT/NG is pending at this time. Patient's scrotal US showed no acute process but did show bilateral varicoceles. Given the patient's clinical presentation and symptoms - will treat as though it is epididimytis. I explained my physical exam findings as well as all test results to the patient. I answered all questions asked by the patient. Patient was given IM Ceftriaxone while in the department. I stressed the importance of the patient taking his medication as directed (either prescribed or as the over the counter packaging recommends). I stressed the importance of the patient following up with his primary care provider and a urologist. I stressed the importance of the patient returning to the emergency department immediately if his symptoms were to worsen or if he were to develop any dizziness, shortness of breath, difficulty breathing, chest pain, blurry vision, loss of vision, nausea, vomiting, abdominal pain, fever, chills, back pain, or any other complaints. Patient verbalized agreement and understanding with this treatment plan and discharge. Differential Diagnosis Differential Diagnoses: The differential diagnosis associated with the presentation includes Epididimytis Scrotal pain Testciular torsion Varicocele Admission/Observation Consideration of admission/observation: Escalation of care including admission/observation considered Patient would have been admitted to the hospital had his work up had any findings where hospital admission was appropriate and his clinical presentation warranted hospital admission. Lab Data [facility] Lab Attestation statement: I reviewed the patient's lab results. My interpretation of these results are in the [facility] Rationale portion of this note. 09/12/24 12:26 09/12/24 12:26 Labs: Lab Results 09/12/24 Range/Units 12:26 WBC 12.8 H (4.8-10.8) X10*3/uL RBC 4.52 L (4.60-5.80) X10*6/uL Hgb 14.9 (14.0-18.0) g/dl Hct 41.9 L (42.0-52.0) % MCV 92.7 (80.0-98.0) fL MCH 33.0 (27.0-33.0) pg MCHC 35.6 (31.0-36.0) g/dl RDW 12.3 (11.0-16.0) % Plt Count 296 (160-400) X10*3/uL MPV 9.9 (9.4-12.4) fL Immature Gran % (Auto) 0.2 (0.0-0.4) % Neut % (Auto) 56.3 (45-73) % Lymph % (Auto) 29.2 (20-40) % [place] % (Auto) 7.3 (2-11) % Eos % (Auto) 6.2 H (0-4) % Baso % (Auto) 0.8 (0-2) % Lymph # (Auto) 3.7 (1.2-4.9) X10*3/uL [place] # (Auto) 0.9 (0.1-1.2) X10*3/uL Eos # (Auto) 0.8 H (0.0-0.4) X10*3/uL Baso # (Auto) 0.1 (0.0-0.2) X10*3/uL Abs Immat Gran (auto) 0.03 (0.00-0.03) X10*3/uL Absolute Neuts (auto) 7.2 (2.0-8.3) x10*3/uL Absolute Nucleated RBC 0.000 (0.0-0.012) X10*3/uL Nucleated RBC % (auto) 0.0 (0.0-0.2) /100WBC ESR 5 (0-15) MM/HR Sodium 139 (135-145) mmol/L Potassium 3.9 (3.3-5.1) mmol/L Chloride 106 (96-108) mmol/L Carbon Dioxide 25 (22-29) mmol/L Anion Gap 12 (12-20) BUN 13 (9-16) mg/dL Creatinine 0.90 (0.5-1.4) mg/dL Estim Creat Clear Calc 96.0 Estimated GFR > 60 Random Glucose 102 (60-115) mg/dL Calcium 9.1 (8.4-10.2) mg/dL Magnesium 2.4 (1.6-2.6) mg/dL Total Bilirubin 0.3 (0.0-1.0) mg/dL AST 33 (5-37) U/L ALT 16 (0-40) U/L Alkaline Phosphatase 99 (39-117) U/L C-Reactive Protein 0.34 (< or = 0.50) mg/dL Total Protein 6.8 (6.5-8.0) g/dL Albumin 4.1 (3.5-5.0) g/dL Independent Interpretation I performed an independent interpretation of an: Ultrasound Interpretation: My interpretation is in agreement with the radiologist's impression of this imaging study. L EXAMINATION: US SCROTUM CLINICAL INFORMATION: Left testicular pain. COMPARISON: None available. TECHNIQUE: A sonogram of the scrotum was performed assessing garcia-scale appearance and color Doppler flow. Spectral Doppler analysis of the arterial and venous flow were performed in the testes bilaterally. FINDINGS: RIGHT: Right testicle measures 4.2 x 2.1 x 2.9 cm, volume 13.3 mL. No focal testicular parenchymal lesions are visualized. Spectral Doppler analysis of the arterial and venous flow is normal in the right testis. Right epididymal head is normal in size. There is a 2 mm epididymal head cyst. There is a normal epididymal head appendage. No right hydrocele. There is a right varicocele present. Right epididymal Doppler flow is normal. LEFT: Left testicle measures 3.8 x 2.0 x 2.7 cm, volume 11.0 mL. No focal testicular parenchymal lesions are visualized. Spectral Doppler analysis of the arterial and venous flow is normal in the left testis. Left epididymal head is normal in size. There is a normal epididymal head appendage. No left hydrocele. There is a left varicocele. Left epididymal Doppler flow is normal. US/US scrotum IMPRESSION: 1. Normal testicles bilaterally. No evidence of torsion or significant hyperemia of either testicle. No masses. 2. Normal epididymides bilaterally. 3. Bilateral varicoceles are present. Electronically signed by: Esa Patel MD 09/12/2024 02:10 PM EDT Dictated By: Esa Patel MD Signed By: Electronically signed by Esa Patel MD 09/12/24 1410 Radiology Impression Discussion of test interpretation with radiology: I have reviewed the radiologist's reading. Prescription Management I considered prescription management with: Antibiotic (given patient's presentation and symptoms - prescribed antibiotic for epididymitis) Discharge Plan Discharge Clinical Impression: Epididymitis, Varicocele Patient Disposition: Home, Self-Care Instructions: Epididymitis (ED), Varicocele (ED), Scrotal Pain (ED) Additional Instructions: Take your medication as prescribed. Follow up with your primary care provider and a urologist. Return to the emergency department immediately if your symptoms worsen or if you develop any numbness, tingling, dizziness, shortness of breath, difficulty breathing, chest pain, blurry vision, loss of vision, nausea, vomiting, abdominal pain, fever, chills, back pain, or any other complaints. Please see the information below about our Patient Portal. If you are not yet enrolled in the [facility] Patient Portal, you will receive an enrollment email invitation following your visit to any [facility] setting. You may also self-enroll in the Patient Portal by visiting our website: [email or web address] The following information is required to access the Patient Portal: - Your [facility] Medical Record Number - Your personal home email address (must match what is in your electronic medical record, Registration staff can assist with this) - Name - Date of Capabilities of the Patient Portal: - Message some providers - View upcoming appointments - Access your health summary, medical history, and visit history - View current conditions and allergies - View procedure and lab results - View your medications, including guidelines, side effects, and precautions - Complete pre-appointment questionnaires requested by your provider - Ready summary reports of your office visits and procedures To access the Patient Portal Mobile [employer], follow these directions: - Search [employer] in the [employer] Store or [employer] Store - Download the [employer] - Search for [facility] - Enter your login/password Prescriptions: New doxycycline hyclate 100 mg tablet 100 mg PO BID 7 Days Qty: 14 0RF No Action buprenorphine-naloxone [Suboxone] 8-2 mg film 10 mg sublingual DAILY Unisom (doxylamine) 25 mg Tablet 25 mg PO BEDTIME cetirizine 10 mg tablet 10 mg PO DAILY Qty: 14 0RF prednisone 20 mg tablet See Rx Instructions .ROUTE .COMPLEX Qty: 18 0RF Rx Instructions: 60mg (3tabs) daily for 3 days, then 40mg (2 tabs) daily for 3 days, then 20mg (1 tab) daily for 3 days Referrals: [facility]rology [facility] [Provider Group] (Call to establish and follow up with a Urologist. ) Neelima Jackson MD [Primary Care Provider] - Interventions: ED Discharge Assessment Last Done: 09/12/24 14:31 Discharge Date/Time: 09/12/24 14:31 Print Language: Romanian
[2024-09-12 12:30] LABS: MANUAL DIFF FLAG NO
[2024-09-12 12:31] LABS: Basophils Absolute Auto 0.1 X10*3/uL (0.0-0.2); Basophils Percent Auto 0.8 % (0-2); Eosinophils Absolute Auto 0.8 X10*3/uL (0.0-0.4); Eosinophils Percent Auto 6.2 % (0-4); Hematocrit 41.9 % (42.0-52.0); Hemoglobin 14.9 g/dl (14.0-18.0); Imm Gran Abs Auto 0.03 X10*3/uL (0.00-0.03); Imm Gran Pct Auto 0.2 % (0.0-0.4); Lymphocytes Absolute Auto 3.7 X10*3/uL (1.2-4.9); Lymphocytes Percent Auto 29.2 % (20-40); Mean Corpuscular HGB Conc 35.6 g/dl (31.0-36.0); Mean Corpuscular Volume 92.7 fL (80.0-98.0); Mean Platelet Volume 9.9 fL (9.4-12.4); Monocytes Absolute Auto 0.9 X10*3/uL (0.1-1.2); Monocytes Percent Auto 7.3 % (2-11); Neutrophils Absolute Auto 7.2 x10*3/uL (2.0-8.3); Neutrophils Percent Auto 56.3 % (45-73); Platelet Count 296 X10*3/uL (160-400); Red Blood Count 4.52 X10*6/uL (4.60-5.80); Red Cell Distribution Width 12.3 % (11.0-16.0); White Blood Count 12.8 X10*3/uL (4.8-10.8)
[2024-09-12 12:46] LABS: C Reactive Protein 0.34 mg/dL (< or = 0.50)
[2024-09-12 12:49] LABS: Alanine Aminotransferase 16 U/L (0-40); Albumin Level 4.1 g/dL (3.5-5.0); Alkaline Phosphatase 99 U/L (39-117); Anion Gap 12 (12-20); Aspartate Amino Transferase 33 U/L (5-37); Bilirubin Total 0.3 mg/dL (0.0-1.0); Blood Urea Nitrogen 13 mg/dL (9-16); Calcium 9.1 mg/dL (8.4-10.2); Carbon Dioxide 25 mmol/L (22-29); Chloride 106 mmol/L (96-108); Estimated Glomerular Filt Rate > 60; Glucose Random 102 mg/dL (60-115); Magnesium 2.4 mg/dL (1.6-2.6); Potassium 3.9 mmol/L (3.3-5.1); Sodium 139 mmol/L (135-145); Total Protein 6.8 g/dL (6.5-8.0)
[2024-09-12 13:08] LABS: Erythrocyte Sedimentation Rate 5 MM/HR (0-15)
[2024-09-12] MEDS: cefTRIAXone sodium 500 MG, Lidocaine HCl 1 % MPF 1 ML IM (14:24)
[2024-09-12 14:31] VITALS: BP 125/88; PULSE 92; RESP 19; TEMP 36.6; O2SAT 98
[2024-09-12 16:37] LABS: CT PCR NOT DETECTED (Not Detect.); NG PCR NOT DETECTED (Not Detect.)
== END 2024-09-12 14:31 | disposition home or self-care (01) ==
PROVIDERS: Physician Assistant Medical; Emergency Provider Emergency Medicine; PCP Internal Medicine
DX: N45.1 Epididymitis (principal); I86.1 Scrotal varices; N50.812 Left testicular pain; F11.20 Opioid dependence, uncomplicated; Z79.899 Other long term (current) drug therapy
CPT/HCPCS: 36415; 76870; 80053; 83735; 85025; 85652; 86140; 87491; 87591; 93975; 96372; 99283; 99284; J0696; J2003

== ENCOUNTER → 2024-09-12 12:03 | Outpatient (BNV) | payer OTHER, SELFPAY | PROVIDERS: Emergency Provider Emergency Medicine; PCP Internal Medicine; Visit Provider Radiology Diagnostic Radiology | DX: I86.1 Scrotal varices (principal) | CPT/HCPCS: 76870; 93975 ==

== ENCOUNTER 2024-09-12 19:57 | Emergency (ER) | payer OTHER, SELFPAY ==
[2024-09-12 20:00] VITALS: BP 146/84; PULSE 93; RESP 18; TEMP 36.9; O2SAT 99; BMI 26.3
--- NOTE | 2024-09-12 20:01 | ED.MALEGU ---
HPI - Male Genitourinary General Chief complaint: Urogenital-Male Stated complaint: testicle pain Time Seen by Provider: 09/12/24 22:28 Related Data Home Medications ?Medication ?Instructions ?Recorded ?Confirmed buprenorphine 8 mg-naloxone 2 mg 10 mg sublingual DAILY 06/01/23 06/01/23 sublingual film (Suboxone) doxylamine succinate 25 mg tablet 25 mg PO BEDTIME 06/01/23 06/01/23 (Unisom (doxylamine)) Previous Rx's ?Medication ?Instructions ?Recorded cetirizine 10 mg tablet 10 mg PO DAILY #14 tabs 11/10/23 prednisone 20 mg tablet See Rx Instructions .Route 11/10/23 .COMPLEX #18 tabs doxycycline hyclate 100 mg tablet 100 mg PO BID 7 days #14 tabs 09/12/24 Allergies Allergy/AdvReac Type Severity Reaction Status Date / Time Penicillins [PENICILLINS] Allergy Intermediate HIVES Verified 09/12/24 20:01 PMFSH Past Medical History Medical History Opioid use disorder Insomnia Surgical History History of surgery Hx of tonsillectomy Social History Social History Advance Directives: No Advance Directives Information Provided: Yes Do you have a plan to hurt others: No Plan Physical Exam Vital Signs: Vital Signs: Last Vital Signs Temp 98.2 F 09/12/24 22:06 Pulse 77 09/12/24 22:06 Resp 14 09/12/24 22:06 BP 124/78 09/12/24 22:06 Pulse Ox 96 09/12/24 22:06 O2 Del Method Room Air 09/12/24 22:06 BMI result Body Mass Index 26.3 Course Course Course Narrative: This is a Rapid Medical Examination (RME) performed by Luis Donahue PA-C in triage. Full HPI, ROS, assessment and treatment plan per primary provider in the Main ED. 09/12/242000 DIANE Martínez Hx: 49 yo male here for eval of left testicular pain since yesterday. Pain initially began in right testicle, now having left testicular pain. He was seen at our facility this morning for same, diagnosed with epididymitis, treated with ceftriaxone and doxycycline. he's taken 1 dose of doxycycline. States pain has been increasing since he was discharged in is now noticing lumps to the testicle that were not there this morning. he has not taken any OTC meds for pain. PE/vitals: well appearing, area not examined in triage d/t privacy Plan: further eval in back. UA ordered. labs/US done this morning. Reevaluation(s) Reevaluation #1: Patient left the emergency department before myself or any of the other clinicians could review or explain physical exam findings, test results, need or lack there of for additional testing, treatment options, or a treatment plan. Discharge Plan Discharge Clinical Impression: Varicocele Patient Disposition: Left W/O Completing Treatment Prescriptions: No Action buprenorphine-naloxone [Suboxone] 8-2 mg film 10 mg sublingual DAILY Unisom (doxylamine) 25 mg Tablet 25 mg PO BEDTIME cetirizine 10 mg tablet 10 mg PO DAILY Qty: 14 0RF prednisone 20 mg tablet See Rx Instructions .ROUTE .COMPLEX Qty: 18 0RF Rx Instructions: 60mg (3tabs) daily for 3 days, then 40mg (2 tabs) daily for 3 days, then 20mg (1 tab) daily for 3 days doxycycline hyclate 100 mg tablet 100 mg PO BID 7 Days Qty: 14 0RF Interventions: LWBS Worksheet Last Done: 09/12/24 23:03 Discharge Date/Time: 09/12/24 23:04
[2024-09-12 22:06] VITALS: BP 124/78; PULSE 77; RESP 14; TEMP 36.8; O2SAT 96
--- NOTE | 2024-09-12 23:00 | MHC.EDTECH ---
this tech assumed care of pt @[id number]
--- NOTE | 2024-09-12 23:01 | PC.NURSE ---
left without completing treatment. DIANE Michelle aware. this RN attempted to question patient about wish to leave. patient showed no interest and stated I've been here for 3.5 hours, I'm out of here. steady gait
== END 2024-09-12 23:04 | disposition left against medical advice (07) ==
PROVIDERS: Emergency Provider Emergency Medicine; PCP Internal Medicine
DX: I86.1 Scrotal varices (principal); N50.812 Left testicular pain
CPT/HCPCS: 99282; 99283

== ENCOUNTER 2024-10-11 17:34 | Emergency (ER) | payer OTHER, SELFPAY ==
--- NOTE | ~2024-10-11 | US_ITS ---
CLINICAL HISTORY: testicular pain Scrotal ultrasound with vascular interrogation Comparison: 09/12/24 Findings: The testes are normal in echotexture without lesions. Normal arterial/venous color Doppler and flow pattern. Right testis size, atrophic: 3.7 x 2.1 x 2.5 cm, volume of 10.3mL. Left testis size, atrophic: 3.3 x 2.1 x 2.4 cm, volume of 8.9mL. The epididymides are normal in size and echotexture. Normal color Doppler. No hydrocele. Mild left varicocele, also visualized on the prior study. Impression: No acute findings. This document has been electronically signed by: Magdalena Haq MD on 10/11/2024 19:55:01
[2024-10-11 17:53] VITALS: BP 130/77; PULSE 86; RESP 16; TEMP 36.6; O2SAT 97; BMI 27.8
--- NOTE | 2024-10-11 17:53 | ED_ITS ---
HPI - Male Genitourinary General Chief complaint: Urogenital-Male Stated complaint: testicle pain Time Seen by Provider: 10/11/24 19:59 Source: patient Mode of arrival: ambulatory Limitations: no limitations History of Present Illness ED Provider: HPI Narrative: Patient's history of varicocele comes here with similar discomfort in the left testicle for last few days patient took doxycycline no penile discharge no urinary symptoms no trauma to the testicle Related Data Home Medications ?Medication ?Instructions ?Recorded ?Confirmed buprenorphine 8 mg-naloxone 2 mg 10 mg sublingual DAILY 06/01/23 06/01/23 sublingual film (Suboxone) doxylamine succinate 25 mg tablet 25 mg PO BEDTIME 06/01/23 06/01/23 (Unisom (doxylamine)) Previous Rx's ?Medication ?Instructions ?Recorded cetirizine 10 mg tablet 10 mg PO DAILY #14 tabs 11/10/23 prednisone 20 mg tablet See Rx Instructions .Route 11/10/23 .COMPLEX #18 tabs doxycycline hyclate 100 mg tablet 100 mg PO BID 7 days #14 tabs 09/12/24 Allergies Allergy/AdvReac Type Severity Reaction Status Date / Time No Known Allergies Allergy Verified 10/11/24 17:56 Review of Systems 2 Review of Systems: Yes all other systems are reviewed and are negative PMFSH Past Medical History Medical History Opioid use disorder Insomnia Surgical History History of surgery Hx of tonsillectomy Social History Social History Alcohol intake: never Smoked in Last 30 Days: Yes Use of substances other than those prescribed or required for medical reasons: No Advance Directives: No Advance Directives Information Provided: No Do you have a plan to hurt others: No Plan Physical Exam 2 Vital Signs: Vital Signs: Last Vital Signs Temp 97.8 F 10/11/24 20:12 Pulse 86 10/11/24 20:12 Resp 16 10/11/24 20:12 BP 130/77 10/11/24 20:12 Pulse Ox 97 10/11/24 20:12 O2 Del Method Room Air 10/11/24 20:12 BMI result Body Mass Index 27.8 Appearance: Alert. Oriented X3. No acute distress. Eyes: no pallor or icterus ENT: Pharynx normal Oral Mucosa moist tympanic membrane intact no erythema, Neck: Normal inspection. Neck supple. CVS: Normal heart rate and rhythm. Pulses normal. Respiratory: No respiratory distress. Equal air entry bilateral, no wheezing/rales/rhonchi Abd: soft, not tender : Normal alignment of the testicle normal size nontender slight fullness of the varices of the left testicle Skin: Skin warm and dry. Normal skin color. Normal skin turgor. Extremities: No lower extremity edema, no calf tenderness Neuro: Oriented X 3. Course Course Course Narrative: This is an RME: Additional HPI, ROS, PE not included below will be deferred to primary provider. RME assessment and note performed by: Zeferino Jaffe PA-C 49-year-old male reports 1 month of testicular pain. States he was here 09/12/2024 for testicle pain and was found to have epididymitis and the varicocele. He was supposed to follow up with urologist but was unable to due to a lapse in health insurance. Reports last night pain has been progressively worsening. Denies any recent injury or trauma to the testicles, or discharge of the meatus he reports he finished his cycle of antibiotics. Has not taken anything today for pain. Denies any urinary symptoms, no concerns for STI. PE: physical exam defered due to lack of privacy in triage Plan: Labs, US scrotum, UA Medical Decision Making Lab Data MDM Lab Attestation statement: I reviewed the patient's lab results. 10/11/24 18:06 10/11/24 18:06 Labs: Lab Results 10/11/24 Range/Units 18:06 WBC 16.7 H (4.8-10.8) X10*3/uL RBC 4.87 (4.60-5.80) X10*6/uL Hgb 16.0 (14.0-18.0) g/dl Hct 47.0 (42.0-52.0) % MCV 96.5 (80.0-98.0) fL MCH 32.9 (27.0-33.0) pg MCHC 34.0 (31.0-36.0) g/dl RDW 12.9 (11.0-16.0) % Plt Count 336 (160-400) X10*3/uL MPV 9.9 (9.4-12.4) fL Immature Gran % (Auto) 0.5 H (0.0-0.4) % Neut % (Auto) 54.0 (45-73) % Lymph % (Auto) 28.1 (20-40) % [place] % (Auto) 8.0 (2-11) % Eos % (Auto) 8.7 H (0-4) % Baso % (Auto) 0.7 (0-2) % Lymph # (Auto) 4.7 (1.2-4.9) X10*3/uL [place] # (Auto) 1.3 H (0.1-1.2) X10*3/uL Eos # (Auto) 1.5 H (0.0-0.4) X10*3/uL Baso # (Auto) 0.1 (0.0-0.2) X10*3/uL Abs Immat Gran (auto) 0.08 H (0.00-0.03) X10*3/uL Absolute Neuts (auto) 9.0 H (2.0-8.3) x10*3/uL Absolute Nucleated RBC 0.000 (0.0-0.012) X10*3/uL Nucleated RBC % (auto) 0.0 (0.0-0.2) /100WBC Sodium 140 (135-145) mmol/L Potassium 4.6 (3.3-5.1) mmol/L Chloride 106 (96-108) mmol/L Carbon Dioxide 29 (22-29) mmol/L Anion Gap 10 L (12-20) BUN 13 (9-16) mg/dL Creatinine 0.94 (0.5-1.4) mg/dL Estim Creat Clear Calc 96.5 Estimated GFR > 60 Random Glucose 84 (60-115) mg/dL Calcium 9.4 (8.4-10.2) mg/dL Total Bilirubin 0.3 (0.0-1.0) mg/dL AST 31 (5-37) U/L ALT 14 (0-40) U/L Alkaline Phosphatase 73 (39-117) U/L Total Protein 7.0 (6.5-8.0) g/dL Albumin 4.3 (3.5-5.0) g/dL Urine Color Yellow Urine Appearance Clear Urine pH 5.5 (5.0-9.0) Ur Specific [place] 1.025 (1.005-1.025) Urine Protein Negative (Neg-Trace) mg/dL Urine Glucose (UA) Negative (Negative) mg/dL Urine Ketones Trace (Negative) mg/dL Urine Blood Negative (Negative) Urine Nitrite Negative (Negative) Ur Leukocyte Esterase Negative (Negative) Chlam trachomat DNA PCR NOT DETECTED (Not Detect.) N.gonorrhoeae DNA (PCR) NOT DETECTED (Not Detect.) Radiology Impression Discussion of test interpretation with radiology: I have reviewed the radiologist's reading. Radiologist Impression: The epididymides are normal in size and echotexture. Normal color Doppler. No hydrocele. Mild left varicocele, also visualized on the prior study. Impression: No acute findings. This document has been electronically signed by: Magdalena Haq MD on 10/11/2024 19:55:01 Discharge Plan Discharge Clinical Impression: Pain in left testicle Patient Disposition: Home, Self-Care Instructions: Testicle Pain (ED) Additional Instructions: Your mild varicocele on the left testcle No active management required Scrotal support as advised Follow up with urologist as needed Prescriptions: No Action buprenorphine-naloxone [Suboxone] 8-2 mg film 10 mg sublingual DAILY Unisom (doxylamine) 25 mg Tablet 25 mg PO BEDTIME cetirizine 10 mg tablet 10 mg PO DAILY Qty: 14 0RF prednisone 20 mg tablet See Rx Instructions .ROUTE .COMPLEX Qty: 18 0RF Rx Instructions: 60mg (3tabs) daily for 3 days, then 40mg (2 tabs) daily for 3 days, then 20mg (1 tab) daily for 3 days doxycycline hyclate 100 mg tablet 100 mg PO BID 7 Days Qty: 14 0RF Referrals: Kodak Pizarro MD [Physician] - Interventions: ED Discharge Assessment Last Done: 10/11/24 20:12 Discharge Date/Time: 10/11/24 20:12 Print Language: Gabonese
[2024-10-11 18:12] LABS: MANUAL DIFF FLAG NO
[2024-10-11 18:13] LABS: Appearance Urine Clear; Color Urine Yellow; Glucose Urine UA Negative (Negative); Leukocyte Esterase Urine Negative (Negative); Nitrite Urine Negative (Negative); PH 5.5 (5.0-9.0); Specific Gravity - Urine 1.025 (1.005-1.025); Urine Blood Negative (Negative); Urine Ketones Trace mg/dL (Negative); Urine Protein Negative (Neg-Trace)
[2024-10-11 18:14] LABS: Basophils Absolute Auto 0.1 X10*3/uL (0.0-0.2); Basophils Percent Auto 0.7 % (0-2); Eosinophils Absolute Auto 1.5 X10*3/uL (0.0-0.4); Eosinophils Percent Auto 8.7 % (0-4); Imm Gran Abs Auto 0.08 X10*3/uL (0.00-0.03); Imm Gran Pct Auto 0.5 % (0.0-0.4); Lymphocytes Absolute Auto 4.7 X10*3/uL (1.2-4.9); Lymphocytes Percent Auto 28.1 % (20-40); Mean Corpuscular Hemoglobin 32.9 pg (27.0-33.0); Mean Corpuscular Volume 96.5 fL (80.0-98.0); Mean Platelet Volume 9.9 fL (9.4-12.4); Monocytes Absolute Auto 1.3 X10*3/uL (0.1-1.2); Platelet Count 336 X10*3/uL (160-400); Red Blood Count 4.87 X10*6/uL (4.60-5.80); Red Cell Distribution Width 12.9 % (11.0-16.0); White Blood Count 16.7 X10*3/uL (4.8-10.8)
[2024-10-11 18:30] LABS: Alanine Aminotransferase 14 U/L (0-40); Albumin Level 4.3 g/dL (3.5-5.0); Alkaline Phosphatase 73 U/L (39-117); Anion Gap 10 (12-20); Aspartate Amino Transferase 31 U/L (5-37); Bilirubin Total 0.3 mg/dL (0.0-1.0); Blood Urea Nitrogen 13 mg/dL (9-16); Calcium 9.4 mg/dL (8.4-10.2); Carbon Dioxide 29 mmol/L (22-29); Chloride 106 mmol/L (96-108); Creatinine Clr Calc Pharmacy 96.5; Estimated Glomerular Filt Rate > 60; Glucose Random 84 mg/dL (60-115); Potassium 4.6 mmol/L (3.3-5.1); Sodium 140 mmol/L (135-145)
[2024-10-11 20:12] VITALS: BP 130/77; PULSE 86; RESP 16; TEMP 36.6; O2SAT 97
[2024-10-11 23:28] LABS: CT PCR NOT DETECTED (Not Detect.); NG PCR NOT DETECTED (Not Detect.)
== END 2024-10-11 20:12 | disposition home or self-care (01) ==
PROVIDERS: Physician Assistant Medical; Emergency Provider Internal Medicine; PCP Internal Medicine
DX: N50.812 Left testicular pain (principal); Z79.899 Other long term (current) drug therapy
CPT/HCPCS: 36415; 76870; 80053; 81003; 85025; 87491; 87591; 93975; 99284

== ENCOUNTER → 2024-10-11 17:57 | Outpatient (BNV) | payer OTHER, SELFPAY | PROVIDERS: Emergency Provider Internal Medicine; PCP Internal Medicine; Visit Provider Radiology Diagnostic Radiology | DX: N50.812 Left testicular pain (principal) | CPT/HCPCS: 76870; 93975 ==

== ENCOUNTER 2024-11-21 12:35 | Outpatient (REF) | payer OTHER, SELFPAY ==
--- OUTSIDE RECORDS SUMMARY | 2023-06-03 08:10 | XMS_ITS ---
Author Organization [facility] Address [address] [place] [id number] Care Team Providers Care Loading Machine Operator Name Role Phone Neelima Jackson Primary Care Provider Unavailab Panda Lee Jr Unavailable REASON FOR VISIT screening Encounters Encounter Location Date Provider Diagnosis [facility] [place] [address] [place] [phone] 06/03/2023 Panda Mariano Jr Plan Of Treatment No Information Progress Notes * ERIN MARESDOB: [birth year] (49 yo M)Acc No.[id number]:06/03/2023 COLON WITH MAC Patient: ERIN PASCAL Provider: Alex Mariano MD :1975 A ge:48 Y S ex:Male Date:06/03/2023 Address:[address] [place], [place] [phone] Pcp:Neelima Jackson Subjective: * Chief Complaints: * [...] 06/03/2023 Generated for Ayde chacon/Elvie/eTransmitting on: 0 11/21/2024 01:26 PM EDT
[2024-11-21 14:16] LABS: Alanine Aminotransferase 21 U/L (0-40); Albumin Level 3.9 g/dL (3.5-5.0); Alkaline Phosphatase 76 U/L (39-117); Anion Gap 11 (12-20); Aspartate Amino Transferase 34 U/L (5-37); Blood Urea Nitrogen 16 mg/dL (9-16); Calcium 8.6 mg/dL (8.4-10.2); Carbon Dioxide 24 mmol/L (22-29); Chloride 106 mmol/L (96-108); Cholesterol 184 mg/dL (<200); Estimated Glomerular Filt Rate > 60; HDL Cholesterol 22 mg/dL (>40); Potassium 3.9 mmol/L (3.3-5.1); Sodium 137 mmol/L (135-145); Total Protein 6.5 g/dL (6.5-8.0); Triglycerides 137 mg/dL (<150)
[2024-11-21 14:35] LABS: Thyroid Stimulating Hormone 0.82 uIU/mL (0.32-4.0)
[2024-11-22 11:18] LABS: Follicle Stimulating Hormone <0.7 mIU/mL (1.4-12.8)
== END 2024-11-21 12:36 | disposition home or self-care (01) ==
LOC: HO.LAB 12:35
PROVIDERS: PCP Internal Medicine; Visit Provider Internal Medicine
DX: E29.1 Testicular hypofunction (principal); F32.2 Major depressive disorder, single episode, severe without psychotic features; Z72.0 Tobacco use
CPT/HCPCS: 36415; 80053; 80061; 83001; 83002; 84403; 84443

== ENCOUNTER 2024-11-28 14:05 | Outpatient (AMB) | payer OTHER, SELFPAY ==
--- OUTSIDE RECORDS SUMMARY | 2023-06-03 08:10 | XMS_ITS ---
Author Organization [facility] Address [address] [place] [phone] Care Team Providers Care Meat Supervisor Name Role Phone Neelima Jacskon Primary Care Provider Unavailab Panda Lee Jr Unavailable REASON FOR VISIT screening Encounters Encounter Location Date Provider Diagnosis [facility] Outpatient [address] [place] [id number] 06/03/2023 Panda Mariano Jr Plan Of Treatment No Information Progress Notes * ERIN MARESDOB: 5 (49 yo M)Acc No.[id number]:06/03/2023 COLON WITH MAC Patient: ERIN PASCAL Provider: Alex Mariano MD :1975 A ge:48 Y S ex:Male Date:06/03/2023 Address:[address] [place], [place] [phone] Pcp:Neelima Jackson Subjective: * Chief Complaints: * 1 . Screening. * Medical History: Objective: * Vitals: Assessment: Plan: * Treatment: * * The named appointment provid er may or may not be the originator of this progress note, and it is not deemed complete until electronically signed by the appointment provider. Sign off status: Pending * Provider: Alex Mariano MD Date: 06/03/2023 Generated for Ayde chacon/Elvie/eTransmitting on: 0 11/28/2024 02:50 PM EDT
--- NOTE | 2024-11-28 14:07 | A.OFFVIS_ITS ---
Intake Visit Reasons: Bilateral Vairocele Intake Note: Patient is present for BILATERAL VAIROCELE Urology Medication:NONE Antibiotic Allergy:NONE Blood Thinner:NONE Senior Database Administrator Required: No Allergies No Known Allergies Allergy (Verified 11/28/24 14:08) HPI Comments Details: Shimon is a pleasant male. He is a patient of Dr. Jackosn. He is seen for the following urologic conditions - testicular pain - hypogonadism Intermittent testicular pain On examination minimal issues with groin, bilateral small testicles Scrotal ultrasound - bilateral small testicles less than 10 cc each Does have prior background using exogenous testosterone Recommend maintenance testosterone with target of 600 ng/dL Meloxicam provided He will contact us when ready for maintenance testosterone Hypogonadism Labs - 12/07 FSH <0.7, LH 0.2 PFSH Medical History Opioid use disorder Insomnia Surgical History History of surgery Hx of tonsillectomy Social History Alcohol intake: never Review of Systems Const Denies chills and Denies fever(s) Card Reports no additional complaints and Denies syncope Resp Denies cough GI Denies abdominal pain and Denies heartburn Reports as per HPI and Denies change in libido Neuro Denies syncope Psych Denies change in libido Endo Denies change in libido Physical Exam Const General: cooperative, healthy appearing, comfortable and no acute distress Orientation/consciousness: patient oriented x3 HEENT Face and sinus: Yes normal facial exam Mouth: moist mucous membranes Neck Neck: Yes normal visual inspection, Yes full ROM and Yes trachea midline Chest Chest palpation & inspection: normal inspection of the chest Resp Effort & Inspection: normal respiratory effort, able to speak in complete sentences and no respiratory distress GI Inspection: Yes normal to inspection Back/Spine/Pelvis Cervical Spine: normal cervical lordosis Thoracic/Lumbar Spine: thoracic and lumbar spine normal to inspection Skin General skin exam: no rashes or lesions noted Neuro General: patient oriented x3, gait normal, tone normal and moves all extremities Extrem General: Yes normal to inspection and Yes capillary refill normal Results AMB Urinalysis, Automated UA Leukoctes 15 Colby/uL Last Edit by VICTORIA Gaffney on 11/28/24 14:28 UA Nitrite Negative Last Edit by Nelli Thompson [facility] on 11/28/24 14:28 UA Urobilinogen 0.2 mg/dL Last Edit [facility] on 11/28/[facility] 14:2 8 UA Protein 30 mg/dL Last Edit by Nelli Thompson [facility] on 11/28/24 14:28 UA pH 6.0 Last Edit by Nelli Thompson [facility] on 11/28/24 14:28 UA Blood 0 Sky/uL Last Edit by Nelli Thompson [facility] on 11/28/24 14:28 UA Specific [place] 1.020 Last Edit by Nelli Thompson [facility] on 11/28/24 14: 28 UA Ketone Negative Last Edit by Nelli Thompson [facility] on 11/28/24 14:28 UA Bilirubin 0 mg/dL Last Edit by Nelli Thompson [facility] on 11/28/24 14:28 UA Glucose 0 mg/dL Last Edit by Nelli Thompson [facility] on 11/28/24 14:28 Results Reviewed Results Reviewed: Laboratory Last Values Urine pH (Auto) 6.0 11/28/24 14:27 Specific [place] (Auto) 1.020 11/28/24 14:27 Urine Protein (Auto) 30 mg/dL 11/28/24 14:27 Glucose (UA)(Auto) 0 mg/dL 11/28/24 14:27 Urine Ketones (Auto) Negative 11/28/24 14:27 Urine Blood (Auto) 0 Sky/uL 11/28/24 14:27 Urine Nitrite (Auto) Negative 11/28/24 14:27 Urine Bilirubin (Auto) 0 mg/dL 11/28/24 14:27 Urine Urobilinogen (Auto) 0.2 mg/dL 11/28/24 14:27 Leukocyte Esterase (Auto) 15 Colby/uL 11/28/24 14:27 Assessment & Plan Assessment & Plan (1) Testicular pain: Code(s): N50.819 - Testicular pain, unspecified Category: Medical Plan P.r.n. follow-up Orders: Orders AMB Urinalysis Automated Today Z13.9 - Encounter for screening, unspecified Medications: New naproxen (Naprosyn) 500 mg PO Q12H PRN 30 tabs 0RF pain N20.0 - Calculus of kidney, N50.819 - Testicular pain, unspecified Patient Instructions: This note is constructed using voice recognition software. While every effort has been made to ensure accuracy pathology transcriptionist errors may have been included. Imaging studies, laboratory and physical exam results were discussed and reviewed in detail. No major barriers to patient understanding were identified. An opportunity to ask questions regarding the treatment plan was provided. All questions were answered. The patient expressed understanding and agreement with the above treatment plan. The patient is aware they should contact our office by phone for worsening of their current condition or the appearance of new urologic symptoms. Compliance is encouraged with any medications and followup testing that is ordered. It is a privilege to participate in the urologic care of your patient. If you have any questions or concerns regarding treatment for the above conditions, or other urologic issues, please do not hesitate to contact me. The office telephone contact is [phone]. Sincerely, Dr Kodak Pizarro MD, [facility] - Urology Compassionate Specialist Care for the Genitourinary System Coding Level of Care Code New Pt Level 4 (17546) Diagnoses Testicular pain N50.819
== END 2024-11-28 15:05 | disposition home or self-care (01) ==
LOC: HO.HUSH 14:05
PROVIDERS: PCP Internal Medicine; Visit Provider Urology
DX: N50.819 Testicular pain, unspecified (principal); Z13.9 Encounter for screening, unspecified
CPT/HCPCS: 99204

== ENCOUNTER → 2024-11-28 14:05 | Outpatient (BNVA) | payer OTHER, SELFPAY | PROVIDERS: PCP Internal Medicine; Visit Provider Urology | DX: E29.1 Testicular hypofunction (principal); N50.819 Testicular pain, unspecified | CPT/HCPCS: 81003; 99202 ==

== ENCOUNTER 2024-12-06 10:10 | Outpatient (REF) | payer OTHER, SELFPAY ==
--- OUTSIDE RECORDS SUMMARY | 2024-12-06 10:59 | XMS_ITS ---
[facility] Care Team Organization Name Specialty Phone Email Start Date End Da te [facility] ROXANNA SILVA Primary Care 03/23/2022 01/02/20 24
--- OUTSIDE RECORDS SUMMARY | 2024-12-06 10:59 | XMS_ITS | Patient Health Record ---
Author Organization [facility] Address [address] [place] [id number] Care Team Providers Care Supervisor Covering And Lining Name Role Phone Neelima Jackson Primary Care Provider Panda Kauffman Jr Unavailable Allergies No Known Allergies Reason For Referral No Information Medications Medication SIG (Take, Route, Frequency, Duration) Notes Start Date End Date Status Unisom 25 MG 1 tablet at bedtime as needed Orally Once a day for 30 day(s) Active MiraLax (colon prep) 17 GM/SCOOP mixed with Gatorade or Crystal Light Orally begin at 5:00 p.m. the day before the procedure for 1 day 05/04/2023 Active Suboxone 8-2 MG Sublingual for 7 Active Immunizations Vaccine Route Administration Date Status Comme nts Influenza Unknown 04/15/2023 Administered Social History Tobacco Use: Social History Observation Description Date Details (start date - stop date) Current Smoker NA - NA Tobacco Use/Smoking Question Answer Notes Patient is a current smoker Alcohol Screen Question Answer Notes Did you have a drink containing alcohol in the p ast year? No Points 0 Interpretation Negative Problems Problem Type SNOMED Code ICD Code Onset Dates Problem Status W/U Status Risk Notes Problem [id number] Colon cancer screening (Z12.11) Active confirmed Problem 04115683 Rectal bleeding (K62.5) Active confirmed Plan Of Treatment Future Test Test Name Order Date COLONOSCOPY 05/04/2023 Insurance Providers Payer Name Payer Address Payer Phone Subscriber Number Group Number Insured Name Patient Relationship to Insured Coverage Start Date Coverage End Date [facility] [employer] [facility] [address] [address] [place], [place] [id number] ERIN MARES Self - patient is the insured MEDICAID OF [facility] [address] [place] [address] [phone] [id number] ERIN MARES Self - patient is the insured Medical (General) History Medical History History ICD Code Insomnia Opioid use disorder, tapering off Suboxo ne Surgical History Surgery Date(Month/Year) Tonsillectomy gynecomastia surgery
== END 2024-12-06 10:11 | disposition home or self-care (01) ==
LOC: HO.LAB 10:10
PROVIDERS: PCP Internal Medicine; Visit Provider Internal Medicine
DX: E29.1 Testicular hypofunction (principal); F32.2 Major depressive disorder, single episode, severe without psychotic features; Z72.0 Tobacco use
CPT/HCPCS: 36415; 84403

== ENCOUNTER 2024-12-18 09:29 | Outpatient (AMB) | payer OTHER, MEDICAID, SELFPAY ==
--- NOTE | 2024-12-18 09:47 | MHC.OFFVIS ---
Vital Signs 12/18/24 09:55 Height 5 ft 7 in Weight 177 lb 6 oz BMI 27.8 BP 125/77 Blood Pressure Location Lt brachial Position Sitting Pulse 88 Intake Visit Reasons: gynecomastia and painful nipples Intake Note: Patent is seen in office for gynecomastia and painful nipples. 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 He reports a previous history of gynecomastia and underwent removal of the gynecomastia. Subsequent to that he developed large nipples which are easily irritated. 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 He denies any bleeding or discharge. He finds it difficult when wearing shirts. [facility] Medical History Opioid use disorder Insomnia Surgical History History of surgery Hx of tonsillectomy Social History Alcohol intake: never Review of Systems Const All systems reviewed & are unremarkable except as noted in HPI and below Physical Exam Vital Signs: Last Vital Signs Pulse 88 12/18/24 09:55 BP 125/77 12/18/24 09:55 BMI result Body Mass Index 27.8 Const General: cooperative and no acute distress Nutritional Appearance: well nourished Orientation/consciousness: patient oriented x3 Limitations: no limitations HEENT Head: Yes normocephalic and Yes atraumatic Ears: hearing grossly normal bilaterally Chest Other: Well-healed bilateral breast incisions with no palpable gynecomastia. Very prominent and protruding nipples each approximately 1 cm in height. No ulceration or bleeding appreciated. No palpable mass. No Enlarged lymph nodes. Resp Effort & Inspection: normal respiratory effort, no audible wheezes, no cough and no respiratory distress Cardio Jugular venous distension: no JVD GI Inspection: Yes normal to inspection Skin Other: Warm, dry, no rash Neuro General: patient oriented x3 Extrem General: Yes no clubbing, cyanosis or edema Assessment & Plan Assessment & Plan (1) Abnormal nipple: Comment: Bilateral Code(s): N64.9 - Disorder of breast, unspecified Category: Medical Plan 49-year-old male patient presenting with complaints of bilateral enlarged nipples which are causing discomfort and irritation. He is requesting reduction of the size of the nipple. I reviewed the procedure, risks and alternatives in detail with the patient and he consents to the surgery. This will be done as an office procedure under local anesthesia. He expressed understanding and agrees with the plan. Coding Level of Care Code New Pt Level 4 (74153) Diagnoses Abnormal nipple N64.9
[2024-12-18 09:55] VITALS: BP 125/77; PULSE 88; BMI 27.8
--- OUTSIDE RECORDS SUMMARY | 2024-12-18 09:55 | XMS_ITS | Patient Health Record ---
Author Organization [facility] Address [address] [place] [id number] Care Team Providers Care Phlebotomy Support Tech Name Role Phone Neelima Jackson Primary Care [...] Problem Status W/U Status Risk Notes Problem [id number] Colon cancer screening (Z12.11) Active confirmed Problem 42611267 Rectal bleeding (K62.5) Active confirmed Plan Of Treatment Future Test Test Name Order Date COLONOSCOPY 05/04/2023 Insurance Providers Payer Name Payer Address Payer Phone Subscriber Number Group Number Insured Name Patient Relationship to Insured Coverage Start Date Coverage End Date [facility] [employer] [facility] [address] [address] [place], [place] [id number] ERIN MARES Self - patient is the insured MEDICAID OF [facility] [address] [place] [address] [phone] [id number] ERIN MARES Self - patient is the insured Medical (General) History Medical History History ICD Code Insomnia Opioid use disorder, tapering off Suboxo ne Surgical History Surgery Date(Month/Year) Tonsillectomy gynecomastia surgery
== END 2024-12-18 10:19 | disposition home or self-care (01) ==
LOC: HO.HGS 09:30
PROVIDERS: PCP Internal Medicine; Visit Provider Surgery
DX: N64.9 Disorder of breast, unspecified (principal)
CPT/HCPCS: 99204

== ENCOUNTER → 2024-12-18 09:29 | Outpatient (BNVA) | payer OTHER, SELFPAY | PROVIDERS: PCP Internal Medicine; Visit Provider Surgery | DX: N64.4 Mastodynia (principal); N64.9 Disorder of breast, unspecified | CPT/HCPCS: 99202 ==

== ENCOUNTER 2024-12-24 13:45 | Outpatient (AMB) | payer OTHER, SELFPAY ==
--- NOTE | 2024-12-24 13:53 | A.OFFVIS_ITS ---
Intake Visit Reasons: excision of nipple Intake Note: Patient here for nipple excision. Patient denies any discomfort or pain for today visit. Warehouse Analyst Required: No Accompanied by: Self / Same As Patient Allergies No Known Allergies Allergy (Verified 12/18/24 09:53) Medication List - Last Reconciled 12/24/24 by Luis Bergeron MD cetirizine 10 mg PO DAILY naproxen (Naprosyn) 500 mg PO Q12H PRN HPI Comments Details: 49-year-old male patient returning for nipple reduction procedure. He continues to have pain/irritation from the bilateral nipples. He denies any bleeding or discharge. [facility] Medical History Opioid use disorder Insomnia Surgical History History of surgery Hx of tonsillectomy Social History Alcohol intake: never Physical Exam Chest Other: Bilateral nipples are approximately 6 mm in height bilaterally with no ulceration or bleeding. Skin Other: Warm, dry, no rash Office Procedures Excision Details: Preoperative diagnosis: Postoperative diagnosis: Bilateral enlarged nipples Procedure: Same Surgeon: Luis Bergeron MD Lei Maker: None Anesthesia: Local 1% lidocaine with epinephrine Indications for procedure: 49-year-old male patient with a persistently elevated laterally with a history of gynecomastia and previous excision. He reports pain from both sides without ulceration or bleeding Operative findings: As noted above Specimen: Bilateral nipple Estimated blood loss: Less than 2 mL Complications: None Procedure details: Patient was brought to the procedure room and placed in a supine position. Site of surgery was confirmed by the patient in the bilateral nipples. After assuring informed consent the skin was prepped with Betadine and draped in a sterile fashion. Local anesthesia was infiltrated behind both nipples. As noted above the nipples were 6 mm in height. Approximately 4 mm of the nipple height was marked, leaving 2 mm nipple mound. Beginning in the right side of the scalpel was used to excise circumferentially around the nipple at the 2 mm level. This was carried down in a conical fashion around the nipple. The nipple was completely excised and sent to pathology for further examination. Hemostasis was assured using light pressure. Skin was then reapproximated using an interrupted 4-0 Polysorb suture in a subcuticular fashion. Attention was then directed to the left nipple were again a circular incision was made at the 2 mm level. This was carried down in a conical fashion around the nipple in the nipple excised. This was passed off the table and sent to pathology for further examination. Hemostasis was assured using light pressure. Skin was then reapproximated using interrupted 4-0 Polysorb suture in a subcuticular fashion. Pressure was held on both sides to assure hemostasis. A sterile Band-Aid was applied to both nipples. The patient tolerated the procedure well. He was discharged to home in stable condition. 96136-rdikq/arms/legs < 0.5cm Procedure code (CPT) selection complete Assessment & Plan Assessment & Plan (1) Abnormal nipple: Comment: Bilateral Code(s): N64.9 - Disorder of breast, unspecified Category: Medical Plan Patient underwent bilateral nipple reduction procedure today and tolerated well. He will return in 1 week for wound check. She should call sooner for any new concerns. Orders: Orders Surgical Today N64.9 - Disorder of breast, unspecified Coding Level of Care Code Procedure Only Diagnoses Abnormal nipple N64.9 CPT Codes Trunk/Arms/Legs - CPT: 55982-wvtfm/arms/legs < 0.5cm ([id number])
== END 2024-12-24 14:49 | disposition home or self-care (01) ==
PROVIDERS: PCP Internal Medicine; Visit Provider Surgery
DX: N64.9 Disorder of breast, unspecified (principal)
CPT/HCPCS: 11400

== ENCOUNTER 2024-12-24 13:45 | Outpatient (REF) | payer OTHER, SELFPAY ==
--- OUTSIDE RECORDS SUMMARY | 2024-12-24 15:09 | XMS_ITS | Patient Health Record ---
Author Organization [facility] Address [address] [place] [id number] Care Team Providers Care Haulage Engine Operator Name Role Phone Neelima Jackson Primary [...] Problem Status W/U Status Risk Notes Problem [id number] Colon cancer screening (Z12.11) Active confirmed Problem [id number] Rectal bleeding (K62.5) Active confirmed Plan Of Treatment Future Test Test Name Order Date COLONOSCOPY 05/04/2023 Insurance Providers Payer Name Payer Address Payer Phone Subscriber Number Group Number Insured Name Patient Relationship to Insured Coverage Start Date Coverage End Date [facility] [employer] [facility] [address] [address] [place], [place] [id number] ERIN MARES Self - patient is the insured MEDICAID OF [facility] [address] [place] [address] [phone] [id number] ERIN MARES Self - patient is the insured Medical (General) History Medical History History ICD Code Insomnia Opioid use disorder, tapering off Suboxo ne Surgical History Surgery Date(Month/Year) Tonsillectomy gynecomastia surgery
== END 2024-12-24 13:46 | disposition home or self-care (01) ==
LOC: HO.LNP 13:45
PROVIDERS: PCP Internal Medicine; Visit Provider Surgery
DX: N64.9 Disorder of breast, unspecified (principal)
CPT/HCPCS: 11400; 88304; 88305

== ENCOUNTER 2024-12-31 15:19 | Outpatient (AMB) | payer OTHER, SELFPAY ==
--- NOTE | 2024-12-31 15:21 | MHC.OFFVIS ---
Vital Signs 12/31/24 15:22 Height 5 ft 7 in Weight 177 lb BMI 27.7 BP 122/66 Blood Pressure Location Lt brachial Position Sitting Pulse 78 Intake Visit Reasons: s/p nipple excision Intake Note: Patient is seen for follow up visit, post excision of nipple. Pt c/o: feeling sore in his excision. post off proc Supervisor Vacuum Metalizing Required: No Accompanied by: Self / Same As Patient Allergies No Known Allergies Allergy (Verified 12/31/24 15:21) HPI Comments Details: 49-year-old male patient returning following excision of bilateral abnormal nipples. Generally feels well but does note some soreness at the nipple level. He also notes some swelling around the areola but generally he is happy with the results. He denies any bleeding or discharge. [facility] Medical History Opioid use disorder Insomnia Surgical History History of surgery Hx of tonsillectomy Social History Alcohol intake: never Physical Exam Vital Signs: Last Vital Signs Pulse 78 12/31/24 15:22 BP 122/66 12/31/24 15:22 BMI result Body Mass Index 27.7 Const General: comfortable Nutritional Appearance: well nourished Orientation/consciousness: patient oriented x3 Chest Other: Bilateral nipple incisions are clean and intact with a a redness or discharge Right nipple: Left nipple: Neuro General: patient oriented x3 Assessment & Plan Assessment & Plan (1) Abnormal nipple: Comment: Bilateral Code(s): N64.9 - Disorder of breast, unspecified Category: Medical Plan 49-year-old male patient status post nipple reduction bilaterally. He tolerated the procedure well the wounds are healing nicely. I recommended applying bacitracin to the wound to help with the swelling. He should follow up as needed. Coding Level of Care Code Global (02494) Diagnoses Abnormal nipple N64.9
[2024-12-31 15:22] VITALS: BP 122/66; PULSE 78; BMI 27.7
--- OUTSIDE RECORDS SUMMARY | 2024-12-31 15:53 | XMS_ITS | Patient Health Record ---
Author Organization [facility] Address [address] [place] [id number] Care Team Providers Care Tractor Driver Name Role Phone Neelima Jackson Primary Care Provider Panda Kauffman Jr Unavailable [phone] Allergies No Known Allergies Reason For Referral [...] Problem Status W/U Status Risk Notes Problem [id number] Colon cancer screening (Z12.11) Active confirmed Problem 19707098 Rectal bleeding (K62.5) Active confirmed Plan Of Treatment Future Test Test Name Order Date COLONOSCOPY 05/04/2023 Insurance Providers Payer Name Payer Address Payer Phone Subscriber Number Group Number Insured Name Patient Relationship to Insured Coverage Start Date Coverage End Date [facility] [employer] [facility] [address] [address] [place], [place] [id number] ERIN MARES Self - patient is the insured MEDICAID OF [facility] [address] [place] [id number] [phone] [id number] ERIN MARES Self - patient is the insured Medical (General) History Medical History History ICD Code Insomnia Opioid use disorder, tapering off Suboxo ne Surgical History Surgery Date(Month/Year) Tonsillectomy gynecomastia surgery
== END 2024-12-31 15:34 | disposition home or self-care (01) ==
PROVIDERS: PCP Internal Medicine; Visit Provider Surgery
DX: N64.9 Disorder of breast, unspecified (principal)
CPT/HCPCS: 99024

== ENCOUNTER → 2024-12-31 15:19 | Outpatient (BNVA) | payer OTHER, SELFPAY | PROVIDERS: PCP Internal Medicine; Visit Provider Surgery | DX: N64.9 Disorder of breast, unspecified (principal) | CPT/HCPCS: 99212 ==

== ENCOUNTER 2025-02-23 09:55 | Outpatient (REF) | payer OTHER, SELFPAY ==
--- OUTSIDE RECORDS SUMMARY | 2025-02-23 09:59 | XMS_ITS | Patient Health Record ---
Author Organization [facility] Address [address] [place] [address] Care Team Providers Care Official Court Interpreter Name Role Phone Renetta Neelima Primary Care Provider Panda Kauffman Jr Unavailable [phone] Allergies No Known Allergies Reason For Referral No Information Medications Medication SIG (Take, Route, Frequency, Duration) Notes Start Date End Date Status Unisom 25 MG 1 tablet at bedtime as needed Orally Once a day; Duration: 30 day(s) Active MiraLax (colon prep) 17 GM/SCOOP mixed with Gatorade or Crystal Light Orally begin at 5:00 p.m. the day before the procedure; Duration: 1 day 05/04/2023 Active Suboxone 8-2 MG Sublingual; Duration: 7 Active Immunizations Vaccine Route Administration Date [...] Problem Status W/U Status Risk Notes Problem Colon cancer screening (289276543) Colon cancer screening (Z12.11) Active confirmed Problem Rectal bleeding (18363785) Rectal bleeding (K62.5) Active confirmed Plan Of Treatment Future Test Test Name Order Date COLONOSCOPY 05/04/2023 Insurance Providers Payer Name Payer Address Payer Phone Subscriber Number Group Number Insured Name Patient Relationship to Insured Coverage Start Date Coverage End Date [facility] [address] [address] [place], [place] [id number] ERIN MARES Self - patient is the insured MEDICAID OF [facility] [address] [place] [address] [phone] [id number] ERIN MARES Self - patient is the insured Medical (General) History Medical History History ICD Code Insomnia Opioid use disorder, tapering off Suboxo ne Surgical History Surgery Date(Month/Year) Tonsillectomy gynecomastia surgery
[2025-02-23 11:40] LABS: Cholesterol 100 mg/dL (<200); HDL Cholesterol 26 mg/dL (>40); Triglycerides 67 mg/dL (<150)
== END 2025-02-23 09:56 | disposition home or self-care (01) ==
LOC: HO.LAB 09:55
PROVIDERS: PCP Internal Medicine; Visit Provider Internal Medicine
DX: Z00.01 Encounter for general adult medical examination with abnormal findings (principal); E78.2 Mixed hyperlipidemia; Z72.0 Tobacco use
CPT/HCPCS: 36415; 80061